=== PATIENT | female | born 1990 | race Caucasian/White ===

== ENCOUNTER 2017-10-20 07:53 | Inpatient (IN) | payer OTHER ==
[2017-10-20] MEDS ORDERED: Ondansetron INJ* 2 MG/ML VIAL IV ONE (08:32)
[2017-10-20] MEDS ORDERED: LORazepam INJ* 2 MG/ML 1 ML VIAL IV ONE ×3 (08:32→15:29)
[2017-10-20] MEDS ORDERED: cefTRIAXone(*) 1 GM in NS 0.9% 50 ML* 50 ML IVPB ONE (08:35)
[2017-10-20] MEDS: NS 0.9% 1000 ML* 2,000 ML IV ONE (09:05)
[2017-10-20] MEDS ORDERED: HYDROmorphone INJ* 1 MG/ML CARPUJECT SYRINGE IV ONE ×2 (09:20→12:04)
[2017-10-20] MEDS ORDERED: HYDROmorphone INJ* 1 MG/ML CARPUJECT SYRINGE ONE (09:22)
[2017-10-20 09:27] LABS: ABS Basophils 0.1 10^3/ul (0-0.2); ABS Eosinophils 0.1 10^3/ul (0-0.6); ABS Lymphocytes 3.9 10^3/ul (1.0-4.8); ABS Monocytes 1.4 10^3/ul (0-0.8); ABS Neutrophils 21.9 10^3/ul (1.5-7.7); ABS Nucleated RBC 0 10^3/ul; Eosinophil % 0.4 % (0-6); Hematocrit 42 % (35-47); Hemoglobin 13.9 g/dl (12.0-16.0); Lymphocyte % 14.2 % (25-47); Mean Corpuscular HGB Conc 33 g/dl (31-36); Mean Corpuscular Hemoglobin 29 pg (27-31); Mean Corpuscular Volume 88 fL (80-97); Mean Platelet Volume 7 um3 (7.4-10.4); Nucleated Red Blood Cells % 0; Platelet Count 435 10^3/ul (150-450); Red Blood Count 4.76 10^6/ul (4.0-5.4); Red Cell Distribution Width 13 % (10.5-15); White Blood Count 27.4 10^3/ul (3.5-10.8)
[2017-10-20 09:39] LABS: INR 1.11 (0.77-1.02)
[2017-10-20 09:53] LABS: EGFR Non-African American 105.6 (>60)
[2017-10-20] MEDS ORDERED: Iohexol 350* (CONTRAST) 500 ML MDV IV ONE ×2 (10:01→11:07)
--- NOTE | 2017-10-20 11:37 | RAD ---
Indication: Right arm swelling. CTA of the chest including the right arm was performed. The aorta demonstrates no evidence of aortic dissection. The right subclavian artery is patent. The right brachial artery appears patent. There is soft tissue edema in the right upper arm in the subcutaneous fat consistent with cellulitis. There is no mediastinal or hilar adenopathy noted. The heart demonstrates no pericardial effusion. The trachea and major bronchi appear patent. Lymph nodes are noted in the right axilla measuring up to 15 mm. IMPRESSION: No evidence of aortic dissection is noted. Right upper arm arterial system is patent.
--- NOTE | 2017-10-20 11:39 | RAD ---
Indication: Right upper arm swelling. Contrast: 100 mL of Omnipaque 350 was given. CTA of the right upper extremity was performed. Coronal, sagittal and 3-D reconstructive images were obtained. The right subclavian artery, axillary artery, brachial artery, radial artery and ulnar artery appear patent Evaluation of the soft tissues demonstrates diffuse subcutaneous edema consistent with cellulitis. The bony structures are unremarkable. IMPRESSION: CT arteriogram of the upper arm is unremarkable. Diffuse subcutaneous edema consistent with cellulitis is noted.
--- NOTE | 2017-10-20 13:06 | RAD ---
INDICATION: Right upper extremity swelling and pain. COMPARISON: There are no prior studies available for comparison. TECHNIQUE: Multiple real-time, color flow and Doppler tracings of the right upper extremity were obtained. FINDINGS: The axillary, brachial, basilic and cephalic veins all demonstrate normal compressibility, augmentation with compression and phasic response with respiration. The radial and ulnar veins demonstrate normal compressibility. The subclavian and internal jugular veins also demonstrate normal color flow imaging and phasic response with respiration. There is edema present throughout the upper extremity. IMPRESSION: NO EVIDENCE FOR DEEP VENOUS THROMBOSIS.
--- NOTE | 2017-10-20 13:15 | ED ---
Guzman Agrawal Abhishek, scribed for Abdiaziz Ballesteros MD on 10/20/17 at 0843 . Complex/Multi-Sys Presentation - HPI Summary HPI Summary: This patient is a 49 year old F [facility]_ with a chief complaint of RUE redness and edema since 10/18/17 at 1500. The pain has been worse since onset. 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 The pt states the injection site was in the middle of the arm. The pt also states that the pain was going up into my chest. Pain was rated a 7/10 in severity by the patient. Symptoms aggravated by nothing. Symptoms alleviated by nothing. Patient denies fevers, abd pain, nausea and chills and leg edema. The Pt also reports no known allergies. - History Of Current Complaint Chief Complaint: EDRashSkinAbscess Hx Obtained From: Patient Onset/Duration: Lasting Days - since 1500 on 10/18/17, Worse Since - onset of pain Timing: Constant Aggravating Factor(s): nothing Alleviating Factor(s): nothing Associated Signs And Symptoms: Positive: Chest Pain, Other - Negative chills. Negative: Nausea, Abdominal Pain, Fever - Allergies/Home Medications Allergies/Adverse Reactions: Allergies Allergy/AdvReac Type Severity Reaction Status Date / Time No Known Allergies Allergy Verified 06/10/14 15:46 PMH/Surg Hx/FS Hx/Imm Hx Neurological History: Reports: Hx Seizures, Other Neuro Impairments/Disorders - Cerebral palsy (mild) Psychiatric History: Reports: Hx Anxiety, Hx Suicide Attempt, Other Psychiatric Issues/Disorders - SI Denies: Hx Eating Disorder, Hx of Violent Episodes Against Others - Immunization History Date of Tetanus Vaccine: PT STATES UNSURE Date of Influenza Vaccine: NONE Infectious Disease History: No Infectious Disease History: Denies: Traveled Outside the [place] in Last 30 Days - Family History Known Family History: Positive: Other - Psychiatric illness; Other FHx reviewed and noncontributory - Social History Lives: With Family Alcohol Use: None 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) Substance Use Type: Reports: Marijuana Substance Use Comment - Amount & Last Used: Sober 1 month (06/10/14) Smoking Status (MU): Light Every Day Tobacco Smoker Review of Systems Negative: Fever, Chills Eyes: Negative ENT: Negative Positive: Chest Pain Respiratory: Negative Negative: Abdominal Pain, Nausea Genitourinary: Negative Positive: Myalgia - RUE pain, Edema - RUE, Other - Negative leg edema Positive: Other - RUE redness Neurological: Negative Psychological: Normal All Other Systems Reviewed And Are Negative: Yes Physical Exam - Summary Physical Exam Summary: General: well-appearing, Moderate pain distress Skin: Erythema in right arm, in the over the bicep from the elbow upto the shoulder Hard to touch, subcutaneous mass Firm Head: normal Eyes: EOMI, SAMANTHA ENT: normal, oral mucosa dry Neck: supple, nontender Respiratory: CTA, breath sounds present Cardiovascular:Tachycardia Abdomen: soft, nontender Bowel: present Musculoskeletal: normal, strength/ROM intact, Pulses in the right hand, and she is able to move her right hand Neurological: normal, sensory/motor intact, A&O x3 Psychological: affect/mood appropriate Triage Information Reviewed: Yes Vital Signs On Initial Exam: Initial Vitals Temp Pulse Resp BP Pulse Ox 98.7 F 110 22 123/82 99 10/20/17 07:55 10/20/17 07:55 10/20/17 07:55 10/20/17 07:55 10/20/17 07:55 Vital Signs Reviewed: Yes Diagnostics - Vital Signs Vital Signs Temp Pulse Resp BP Pulse Ox 10/20/17 07:55 98.7 F 110 22 123/82 99 - Laboratory Lab Results: Lab Results 10/20/17 10/20/17 10/20/17 Range/Units 09:11 09:11 09:11 WBC (3.5-10.8) 10^3/ul RBC (4.0-5.4) 10^6/ul Hgb (12.0-16.0) g/dl Hct (35-47) % MCV (80-97) fL MCH (27-31) pg MCHC (31-36) g/dl RDW (10.5-15) % Plt Count (150-450) 10^3/ul MPV (7.4-10.4) um3 Neut % (Auto) (38-83) % Lymph % (Auto) (25-47) % Valencia % (Auto) (1-9) % Eos % (Auto) (0-6) % Baso % (Auto) (0-2) % Absolute Neuts (auto) (1.5-7.7) 10^3/ul Absolute Lymphs (auto) (1.0-4.8) 10^3/ul Absolute Monos (auto) (0-0.8) 10^3/ul Absolute Eos (auto) (0-0.6) 10^3/ul Absolute Basos (auto) (0-0.2) 10^3/ul Absolute Nucleated RBC 10^3/ul Nucleated RBC % INR (Anticoag Therapy) 1.11 H (0.77-1.02) APTT 28.8 (26.0-36.3) seconds Sodium 132 L (133-145) mmol/L Potassium 4.0 (3.5-5.0) mmol/L Chloride 103 (101-111) mmol/L Carbon Dioxide 21 L (22-32) mmol/L Anion Gap 8 (2-11) mmol/L BUN 6 (6-24) mg/dL Creatinine 0.67 (0.51-0.95) mg/dL Est GFR ( Amer) 135.8 (>60) Est GFR (Non-Af Amer) 105.6 (>60) BUN/Creatinine Ratio 9.0 (8-20) Glucose 93 (70-100) mg/dL Lactic Acid (0.5-2.0) mmol/L Calcium 9.1 (8.6-10.3) mg/dL Total Bilirubin 0.40 (0.2-1.0) mg/dL AST 14 (13-39) U/L ALT 12 (7-52) U/L Alkaline Phosphatase 115 H (34-104) U/L Total Creatine Kinase 74 (10-223) U/L CK-MB (CK-2) 5.2 (0.6-6.3) ng/mL Troponin I 0.06 H* (<0.04) ng/mL C-Reactive Protein 258.44 H (< 5.00) mg/L B-Natriuretic Peptide 122 H ( - 100) pg/mL Total Protein 7.2 (6.4-8.9) g/dL Albumin 3.9 (3.2-5.2) g/dL Globulin 3.3 (2-4) g/dL Albumin/Globulin Ratio 1.2 (1-3) Lipase 16 (11.0-82.0) U/L TSH 0.40 (0.34-5.60) mcIU/mL Beta HCG, Quant 1.66 mIU/mL Salicylates < 2.50 (<30) mg/dL Acetaminophen < 15 mcg/mL Serum Alcohol < 10 (<10) mg/dL 10/20/17 10/20/17 Range/Units 09:11 09:11 WBC 27.4 H (3.5-10.8) 10^3/ul RBC 4.76 (4.0-5.4) 10^6/ul Hgb 13.9 (12.0-16.0) g/dl Hct 42 (35-47) % MCV 88 (80-97) fL MCH 29 (27-31) pg MCHC 33 (31-36) g/dl RDW 13 (10.5-15) % Plt Count 435 (150-450) 10^3/ul MPV 7 L (7.4-10.4) um3 Neut % (Auto) 79.8 (38-83) % Lymph % (Auto) 14.2 L (25-47) % Valencia % (Auto) 5.2 (1-9) % Eos % (Auto) 0.4 (0-6) % Baso % (Auto) 0.4 (0-2) % Absolute Neuts (auto) 21.9 H (1.5-7.7) 10^3/ul Absolute Lymphs (auto) 3.9 (1.0-4.8) 10^3/ul Absolute Monos (auto) 1.4 H (0-0.8) 10^3/ul Absolute Eos (auto) 0.1 (0-0.6) 10^3/ul Absolute Basos (auto) 0.1 (0-0.2) 10^3/ul Absolute Nucleated RBC 0 10^3/ul Nucleated RBC % 0 INR (Anticoag Therapy) (0.77-1.02) APTT (26.0-36.3) seconds Sodium (133-145) mmol/L Potassium (3.5-5.0) mmol/L Chloride (101-111) mmol/L Carbon Dioxide (22-32) mmol/L Anion Gap (2-11) mmol/L BUN (6-24) mg/dL Creatinine (0.51-0.95) mg/dL Est GFR ( Amer) (>60) Est GFR (Non-Af Amer) (>60) BUN/Creatinine Ratio (8-20) Glucose (70-100) mg/dL Lactic Acid 1.1 (0.5-2.0) mmol/L Calcium (8.6-10.3) mg/dL Total Bilirubin (0.2-1.0) mg/dL AST (13-39) U/L ALT (7-52) U/L Alkaline Phosphatase (34-104) U/L Total Creatine Kinase (10-223) U/L CK-MB (CK-2) (0.6-6.3) ng/mL Troponin I (<0.04) ng/mL C-Reactive Protein (< 5.00) mg/L B-Natriuretic Peptide ( - 100) pg/mL Total Protein (6.4-8.9) g/dL Albumin (3.2-5.2) g/dL Globulin (2-4) g/dL Albumin/Globulin Ratio (1-3) Lipase (11.0-82.0) U/L TSH (0.34-5.60) mcIU/mL Beta HCG, Quant mIU/mL Salicylates (<30) mg/dL Acetaminophen mcg/mL Serum Alcohol (<10) mg/dL Result Diagrams: 10/20/17 09:11 10/20/17 09:11 Lab Statement: Any lab studies that have been ordered have been reviewed, and results considered in the medical decision making process. - CT Chest CTA CT Interpretation Completed By: Radiologist - Chest CTA No evidence of aortic dissection is noted. Right upper arm arterial system is patent. ED physician has reviewed this radiology report. Upper extremity CTA CT Interpretation Completed By: Radiologist - Upper Extremity CTA CT arteriogram of the upper arm is unremarkable. Diffuse subcutaneous edema consistent with cellulitis is noted. ED physician has reviewed this radiology report and agrees. - EKG 0958 EKG Rhythm: Sinus Rhythm - 87 bpm EKG Interpretation: An EKG at [address] elevation in V2 and no ectopy Complex Multi-Symp Course/Dx Course Of Treatment: DR GOLDSTEIN, ICU, SAW PATIENT IN ED. ADMIT HOSPITALIST. CRITICAL CARE TIME LESS THAN 30 MINUTES. - Diagnoses Provider Diagnoses: Cellulitis of arm, right, Elevated troponin Discharge - Discharge Plan Condition: Fair Disposition: ADMITTED TO [facility] Referrals: Prosper RICO,Deonte Lyn [Primary Care Provider] - The documentation as recorded by the Guzman bergeron Abhishek accurately reflects the service I personally performed and the decisions made by me, Abdiaziz Ballesteros MD.
[2017-10-20] MEDS ORDERED: Ondansetron INJ* 2 MG/ML VIAL IV PRN (13:18)
[2017-10-20] MEDS ORDERED: Vancomycin(*) 1,000 MG in NS 0.9% 250 ML* 250 ML IVPB ONE (14:00)
[2017-10-20] MEDS ORDERED: Vancomycin(*) 1,000 MG in D5W 250 ML BAG* 250 ML IVPB ONE (14:00)
[2017-10-20] MEDS ORDERED: Vancomycin per Pharmacy* NOTE FOLLOW UP PRN (14:22)
[2017-10-20] MEDS ORDERED: LORazepam INJ* 2 MG/ML 1 ML VIAL ONE (15:31)
[2017-10-20] MEDS: traMADol TAB* 50 MG PO PRN (16:13)
--- NOTE | 2017-10-20 17:31 | HP ---
CC: Dr. Cheng * [facility] MEDICINE HISTORY AND PHYSICAL: DATE OF ADMISSION: 10/20/17 PRIMARY CARE PROVIDER: Dr. Cheng. ATTENDING PHYSICIAN: Kriss Gr DO * (dictation provided by Magalie Kelley NP ) CHIEF COMPLAINT: Right upper extremity redness and swelling. HISTORY OF PRESENT ILLNESS: Ms. Boyd is a 27-year-old female who has a history of IV drug use who presented to the hospital today with concern for right upper extremity redness and swelling. It was found on my examination that Ms. Boyd is very sedated and she is not able to offer much in the way of history other than to confirm that she is an injection drug user and per her report now, she injected methamphetamines into her right upper extremity. She confirms that she first noted symptoms about 4 days ago. Per the emergency medical room provider who interviewed her when she first arrived to the ED, she stated that she had had this redness and swelling since 10/18/17 at 3 o'clock. 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 She reported at that time that she had pain going up into her chest. I am not able to get further information from her today. In the emergency room, she had a white blood cell count of 27.4. Her CRP is 258.44. She is afebrile. Her vitals are stable. She is not tachycardic. She is not hypotensive. Her BUN and creatinine are within normal limits. She had a chest thorax CTA and an upper extremity CTA, which showed good perfusion, but likely significant subcutaneous edema. She also had a venous Doppler study, which showed no DVT. Neither study showed any subcutaneous air. PAST MEDICAL HISTORY: Unknown. MEDICATIONS: Unknown. ALLERGIES: Unknown. FAMILY HISTORY: Unobtainable. SOCIAL HISTORY: Report of IV drug use. No other history obtainable. REVIEW OF SYSTEMS: Unobtainable. PHYSICAL EXAMINATION GENERAL: Ms. Boyd is lying in the bed. She does not appear to be in any acute distress. VITAL SIGNS: Temperature 98.7, pulse rate 97, respiratory rate 23, O2 saturation 99% on room air, blood pressure 102/74. LUNGS: Clear to auscultation bilaterally with no accessory muscle use and good aeration. HEART: S1, S2. No murmur, rub, or gallop, and regular. ABDOMEN: Soft, nontender with bowel sounds positive x4. EXTREMITIES: No cyanosis. The patient has erythema and edema in her right upper extremity from about the level of the shoulder to almost the level of the elbow on the medial aspect. There are no open areas or drainage. There is induration on the extremity side of the axilla. NEURO: She awakens to voice briefly and will say a few words, then falls back to sleep. She moves all extremities equally. There is no facial asymmetry or focal weakness. Extraocular movements are intact. Her pupils are pinpoint. LABORATORY DATA/DIAGNOSTIC STUDIES: Sodium 132, potassium 4.0, chloride 103, serum bicarbonate 21, BUN 6, creatinine 0.67, glucose 93. Lactic acid 1.1. Troponin 0.06. CRP 258.44. BNP 122. WBC 27.4, hemoglobin 13.9, hematocrit 42 , platelet count 435,000. INR 1.11. Tox screen is negative for alcohol, Tylenol, or salicylates. The chest thorax CTA is read as follows; "no evidence of aortic dissection is noted. Right upper arterial system is patent." Upper extremity CTA is read as follows; "CT arteriogram of the upper arm is unremarkable. Diffuse subcutaneous edema consistent with cellulitis is noted." Venous Doppler study shows "no evidence for deep vein thrombosis." EKG showed sinus rhythm, but no evidence of ischemia and a heart rate of about 90. ASSESSMENT AND PLAN: Ms. Boyd is a 27-year-old female with no known past medical history who presented to the hospital today with report of injecting photoengraving sketch maker fluid and/or methamphetamine into her right upper extremity with ensuing erythema and edema starting about 2 to 4 days ago. In the emergency room, she has been found to have sepsis with cellulitis. Our plans are for inpatient admission as I expect her length of stay would be greater than 2 days for the followin. Sepsis with cellulitis: The patient has received an appropriate over 30 mL/ kg IV fluid bolus in the emergency room. Her lactic acid is normal. She is hemodynamically stable. Plan to continue with maintenance fluids and adjust those as needed based on clinical course. Blood cultures have been sent as well as hepatitis C and HIV. The patient will be covered with vancomycin and cefepime until blood cultures are resulted as she is at high risk for polymicrobial infection and bacteremia. I have also consulted Dr. Soria and he will see her at his earliest convenience. 2. Intravenous drug use. Social Work has been consulted. 3. Code status is full code. 4. Disposition to the telemetry floor. 5. Elevated troponin. The patient's troponin is 0.06 today. I suspect this is due to infection. However, she did report some chest discomfort on arrival. Plan to trend troponins and monitor on the telemetry unit and further testing will be based on clinical course. TIME SPENT: Approximately 60 minutes were spent on the admission of this patient, and more than half of the time was spent with the patient at the bedside reviewing the events leading up to this hospitalization, performing the physical examination and reviewing my plan of care. MAGALIE KELLEY, ELLI [id number]/[facility] #: [id number] RADHA
[2017-10-20] MEDS: oxyCODONE/Acetamin 5/325 MG* TAB PO PRN (18:35)
[2017-10-20] MEDS: LORazepam INJ* 2 MG/ML 1 ML VIAL IV PUSH PRN (18:36)
[2017-10-20] MEDS ORDERED: Nicotine GUM* 2 MG PO PRN (18:59)
[2017-10-20] MEDS ORDERED: Cefepime(*) 1 GM in NS 0.9% 50 ML* 50 ML IVPB SCH (21:00)
[2017-10-20] MEDS ORDERED: LORazepam INJ* 2 MG/ML 1 ML VIAL IV PUSH ONE (21:08)
[2017-10-20] MEDS: diPHENhydraMINE PO* 50 MG PO PRN (21:52)
[2017-10-20] MEDS: Acetaminophen TAB* 325 MG PO PRN (21:53)
[2017-10-20] MEDS: Vancomycin(*) 500 MG in D5W 250 ML BAG* 250 ML IVPB SCH (22:06)
[2017-10-20] MEDS: Cefepime 1 GM in Dextrose(*) 1 GM/50 ML BAG IV SCH (22:16)
[2017-10-21] MEDS: diPHENhydraMINE PO* 50 MG PO PRN (03:47)
[2017-10-21] MEDS: Vancomycin(*) 500 MG in D5W 250 ML BAG* 250 ML IVPB SCH ×2 (03:47→09:15)
[2017-10-21] MEDS: oxyCODONE/Acetamin 5/325 MG* TAB PO PRN ×3 (03:48→23:09)
[2017-10-21] MEDS: LORazepam INJ* 2 MG/ML 1 ML VIAL IV PUSH PRN ×2 (03:49→09:17)
[2017-10-21] MEDS: traMADol TAB* 50 MG PO PRN ×2 (03:49→14:51)
[2017-10-21 05:16] LABS: Urine Appearance Clear; Urine Blood Negative (Negative); Urine Color Straw; Urine Ketones Negative (Negative); Urine Protein Negative (Negative); Urine Specific Gravity 1.009 (1.010-1.030); Urine Urobilinogen Negative (Negative)
[2017-10-21 06:18] LABS: ABS Basophils 0 10^3/ul (0-0.2); ABS Eosinophils 0.3 10^3/ul (0-0.6); ABS Lymphocytes 3.5 10^3/ul (1.0-4.8); ABS Monocytes 1.1 10^3/ul (0-0.8); ABS Neutrophils 12.1 10^3/ul (1.5-7.7); ABS Nucleated RBC 0 10^3/ul; Eosinophil % 1.6 % (0-6); Hematocrit 34 % (35-47); Hemoglobin 11.3 g/dl (12.0-16.0); Lymphocyte % 20.7 % (25-47); Mean Corpuscular HGB Conc 34 g/dl (31-36); Mean Corpuscular Hemoglobin 29 pg (27-31); Mean Corpuscular Volume 87 fL (80-97); Mean Platelet Volume 7 um3 (7.4-10.4); Nucleated Red Blood Cells % 0; Platelet Count 347 10^3/ul (150-450); Red Blood Count 3.87 10^6/ul (4.0-5.4); Red Cell Distribution Width 13 % (10.5-15); White Blood Count 17.1 10^3/ul (3.5-10.8)
[2017-10-21 06:35] LABS: EGFR Non-African American 135.4 (>60); Vancomycin Trough 16.1 mcg/mL
[2017-10-21] MEDS: Cefepime 1 GM in Dextrose(*) 1 GM/50 ML BAG IV SCH ×2 (09:15→21:59)
[2017-10-21] MEDS: Nicotine PATCH 14 MG/24 HR* PATCH TRANSDERM SCH (09:15)
[2017-10-21] MEDS ORDERED: Vancomycin Trough Check NOTE FOLLOW UP ONE (10:00)
[2017-10-21] MEDS: Vancomycin(*) 1,000 MG in D5W 250 ML BAG* 250 ML IVPB SCH ×2 (15:53→22:54)
--- NOTE | 2017-10-21 15:56 | PN ---
Subjective Date of Service: 10/21/17 Interval History: Patient seen and examined. Sleepy, tearful. In extreme pain with movement of RUE. 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 Crying when describing the episode and that her mother 2 years ago and she was injecting drugs to stop thinking about the loss of her mother. States pain to right chest, upper back and shoulder, right axilla and down to forearm. Denies SOB, no headache fever or chills. No n/v. Family friend at bedside. Objective Active Medications: Acetaminophen (Tylenol Tab*) 650 mg PO Q6H PRN PRN Reason: pain/fever Last Admin: 10/20/17 21:53 Dose: 650 mg Device (Nicotine Mouth Piece*) 1 each INH .USE WITH NICOTROL PRN PRN Reason: CRAVING Diphenhydramine HCl (Benadryl Po*) 50 mg PO Q6H PRN PRN Reason: ANXIETY Last Admin: 10/21/17 03:47 Dose: 50 mg Lactated Ringer's (Lactated Ringers 1000 Ml Bag*) 1,000 mls @ 150 mls/hr IV PER RATE [facility] Last Admin: 10/21/17 09:29 Dose: 150 mls/hr Cefepime HCl (Maxipime 1 Gm In Dextrose Duplex (*)) 1 gm in 50 mls @ 100 mls/ hr IV Q12H [facility]AYEN Last Admin: 10/21/17 09:15 Dose: 100 mls/hr Vancomycin HCl 1,000 mg/ (Dextrose) 250 mls @ 166.667 mls/hr IVPB Q8H [facility] Lorazepam (Ativan Inj*) 1 mg IV PUSH Q4H PRN PRN Reason: AGITATION Last Admin: 10/21/17 09:17 Dose: 1 mg Nicotine (Nicotine Inhaler*) 10 mg INH Q2H PRN PRN Reason: CRAVING Nicotine (Nicotine Patch 14 Mg/24 Hr*) 1 patch TRANSDERM DAILY [facility] Last Admin: 10/21/17 09:15 Dose: 1 patch Nicotine Polacrilex (Nicotine Gum*) 2 mg PO Q2H PRN PRN Reason: CRAVING Ondansetron HCl (Zofran Inj*) 4 mg IV Q6H PRN PRN Reason: NAUSEA Oxycodone/Acetaminophen (Percocet 5/325 Tab*) 1 tab PO Q4H PRN PRN Reason: PAIN Last Admin: 10/21/17 14:52 Dose: 1 tab Pharmacy Consult (Vancomycin Per Pharmacy*) 1 note FOLLOW UP . PRN PRN Reason: PER PROTOCOL Pharmacy Profile Note (Nicotine Patch Removal Note*) 1 note PATCH OFF 2100 DWAYNE Pharmacy Profile Note (Vancomycin Trough Check) 1 note FOLLOW UP 0630 ONE Stop: 10/23/17 06:31 Tramadol HCl (Ultram*) 100 mg PO Q6H PRN PRN Reason: PAIN Last Admin: 10/21/17 14:51 Dose: 100 mg Vital Signs - 8 hr 10/21/17 10/21/17 10/21/17 08:00 09:17 10:38 Temperature Pulse Rate Respiratory 16 16 14 Rate Blood Pressure (mmHg) O2 Sat by Pulse Oximetry 10/21/17 10/21/17 10/21/17 11:16 14:51 14:52 Temperature 98.4 F Pulse Rate 96 Respiratory 24 16 16 Rate Blood Pressure 119/83 (mmHg) O2 Sat by Pulse 99 Oximetry Oxygen Devices in Use Now: None Appearance: disheveled, tearful, sleepy Eyes: No Scleral Icterus, PERRLA Ears/Nose/Mouth/Throat: NL Teeth, Lips, Gums, - - dry oral mucosa Neck: NL Appearance and Movements; NL JVP, Trachea Midline Respiratory: Symmetrical Chest Expansion and Respiratory Effort, Clear to Auscultation Cardiovascular: NL Sounds; No Murmurs; No JVD, RRR, No Edema Abdominal: NL Sounds; No Tenderness; No Distention Lymphatic: No Cervical Adenopathy Extremities: No Clubbing, Cyanosis - +2 distal pulses on affected limb, sensation and motor intact Skin: - - erythema and edema RUE, right chest and partial neck, marked Neurological: Alert and Oriented x 3 Result Diagrams: 10/21/17 05:59 10/21/17 05:55 Additional Lab and Data: Lab Results 10/20/17 10/20/17 10/20/17 Range/Units 09:11 09:11 09:11 WBC (3.5-10.8) 10^3/ul RBC (4.0-5.4) 10^6/ul Hgb (12.0-16.0) g/dl Hct (35-47) % MCV (80-97) fL MCH (27-31) pg MCHC (31-36) g/dl RDW (10.5-15) % Plt Count (150-450) 10^3/ul MPV (7.4-10.4) um3 Neut % (Auto) (38-83) % Lymph % (Auto) (25-47) % Mccone % (Auto) (1-9) % Eos % (Auto) (0-6) % Baso % (Auto) (0-2) % Absolute Neuts (auto) (1.5-7.7) 10^3/ul Absolute Lymphs (auto) (1.0-4.8) 10^3/ul Absolute Monos (auto) (0-0.8) 10^3/ul Absolute Eos (auto) (0-0.6) 10^3/ul Absolute Basos (auto) (0-0.2) 10^3/ul Absolute Nucleated RBC 10^3/ul Nucleated RBC % INR (Anticoag Therapy) 1.11 H (0.77-1.02) APTT 28.8 (26.0-36.3) seconds Sodium 132 L (133-145) mmol/L Potassium 4.0 (3.5-5.0) mmol/L Chloride 103 (101-111) mmol/L Carbon Dioxide 21 L (22-32) mmol/L Anion Gap 8 (2-11) mmol/L BUN 6 (6-24) mg/dL Creatinine 0.67 (0.51-0.95) mg/dL Est GFR ( Amer) 135.8 (>60) Est GFR (Non-Af Amer) 105.6 (>60) BUN/Creatinine Ratio 9.0 (8-20) Glucose 93 (70-100) mg/dL Lactic Acid (0.5-2.0) mmol/L Calcium 9.1 (8.6-10.3) mg/dL Total Bilirubin 0.40 (0.2-1.0) mg/dL AST 14 (13-39) U/L ALT 12 (7-52) U/L Alkaline Phosphatase 115 H (34-104) U/L Total Creatine Kinase 74 (10-223) U/L CK-MB (CK-2) 5.2 (0.6-6.3) ng/mL Troponin I 0.06 H* (<0.04) ng/mL C-Reactive Protein 258.44 H (< 5.00) mg/L B-Natriuretic Peptide 122 H ( - 100) pg/mL Total Protein 7.2 (6.4-8.9) g/dL Albumin 3.9 (3.2-5.2) g/dL Globulin 3.3 (2-4) g/dL Albumin/Globulin Ratio 1.2 (1-3) Lipase 16 (11.0-82.0) U/L TSH 0.40 (0.34-5.60) mcIU/mL Beta HCG, Quant 1.66 mIU/mL Salicylates < 2.50 (<30) mg/dL Acetaminophen < 15 mcg/mL Serum Alcohol < 10 (<10) mg/dL 10/20/17 10/20/17 Range/Units 09:11 09:11 WBC 27.4 H (3.5-10.8) 10^3/ul RBC 4.76 (4.0-5.4) 10^6/ul Hgb 13.9 (12.0-16.0) g/dl Hct 42 (35-47) % MCV 88 (80-97) fL MCH 29 (27-31) pg MCHC 33 (31-36) g/dl RDW 13 (10.5-15) % Plt Count 435 (150-450) 10^3/ul MPV 7 L (7.4-10.4) um3 Neut % (Auto) 79.8 (38-83) % Lymph % (Auto) 14.2 L (25-47) % Mccone % (Auto) 5.2 (1-9) % Eos % (Auto) 0.4 (0-6) % Baso % (Auto) 0.4 (0-2) % Absolute Neuts (auto) 21.9 H (1.5-7.7) 10^3/ul Absolute Lymphs (auto) 3.9 (1.0-4.8) 10^3/ul Absolute Monos (auto) 1.4 H (0-0.8) 10^3/ul Absolute Eos (auto) 0.1 (0-0.6) 10^3/ul Absolute Basos (auto) 0.1 (0-0.2) 10^3/ul Absolute Nucleated RBC 0 10^3/ul Nucleated RBC % 0 INR (Anticoag Therapy) (0.77-1.02) APTT (26.0-36.3) seconds Sodium (133-145) mmol/L Potassium (3.5-5.0) mmol/L Chloride (101-111) mmol/L Carbon Dioxide (22-32) mmol/L Anion Gap (2-11) mmol/L BUN (6-24) mg/dL Creatinine (0.51-0.95) mg/dL Est GFR ( Amer) (>60) Est GFR (Non-Af Amer) (>60) BUN/Creatinine Ratio (8-20) Glucose (70-100) mg/dL Lactic Acid 1.1 (0.5-2.0) mmol/L Calcium (8.6-10.3) mg/dL Total Bilirubin (0.2-1.0) mg/dL AST (13-39) U/L ALT (7-52) U/L Alkaline Phosphatase (34-104) U/L Total Creatine Kinase (10-223) U/L CK-MB (CK-2) (0.6-6.3) ng/mL Troponin I (<0.04) ng/mL C-Reactive Protein (< 5.00) mg/L B-Natriuretic Peptide ( - 100) pg/mL Total Protein (6.4-8.9) g/dL Albumin (3.2-5.2) g/dL Globulin (2-4) g/dL Albumin/Globulin Ratio (1-3) Lipase (11.0-82.0) U/L TSH (0.34-5.60) mcIU/mL Beta HCG, Quant mIU/mL Salicylates (<30) mg/dL Acetaminophen mcg/mL Serum Alcohol (<10) mg/dL Diagnostic Imaging: Patient Name: ASHELY SO Medical Record#: [id number] Ordering Physician: Abdiaziz Ballesteros MD Acct.#: [id number] : 1990 Age: 27 Sex: F Location: EMERGENCY DEPARTMENT Exam Date: 10/20/17 1005 ADM Status: REG ER Order Information: CTA EXTREMITY UPPER RIGHT Accession Number: [id number] CPT: 96811 Indication: Right upper arm swelling. Contrast: 100 mL of Omnipaque 350 was given. CTA of the right upper extremity was performed. Coronal, sagittal and 3-D reconstructive images were obtained. The right subclavian artery, axillary artery, brachial artery, radial artery and ulnar artery appear patent Evaluation of the soft tissues demonstrates diffuse subcutaneous edema consistent with cellulitis. The bony structures are unremarkable. IMPRESSION: CT arteriogram of the upper arm is unremarkable. Diffuse subcutaneous edema consistent with cellulitis is noted. <Electronically signed by Marilee Latif MD in OV> 10/20/17 1136 Dictated By: Marilee Latif MD Dictated Date/Time: 10/20/17 1136 Transcribed Date/Time: 10/20/17 1134 Copy to: CC:Deonte Cheng MD; Abdiaziz Ballesteros MD Imaging - [facility] - [place] [facility] Imaging - [facility] [address] [address] ph [phone]) ph [phone]) ph [phone]) 1 of 1 Assess/Plan/Problems-Billing Assessment: - Patient Problems (1) Cellulitis of right upper extremity Code(s): L03.113 - CELLULITIS OF RIGHT UPPER LIMB SNOMED Code(s): 826499614 Comment: - IV vanco and cefepime - Pending consult with ID - CT and US negative for clot or artererial occlusion - Per poison control, observe for compartment syndrome or need for fasciotomy - Will consult vascular if needed - Monitor site closely (2) Drug abuse and dependence Code(s): F19.20 - OTHER PSYCHOACTIVE SUBSTANCE DEPENDENCE, UNCOMPLICATED SNOMED Code(s): 3333620 Comment: - Offered SW help, patient declines (3) Sepsis Comment: - 2/2 cellulitis, continue IVNS fluid resuscitation - Continue IV atbx - Follow blood cx - WBCs trending down - BP stable - Trend temps Status and Disposition: Remain inpatient with close hemodynamic monitoring Counseling and/or Coordination of Care Minutes: Coordinated with staff, time spent >45mins
[2017-10-21] MEDS: Nicotine Patch Removal NOTE PATCH OFF SCH (22:02)
[2017-10-22] MEDS: diPHENhydraMINE PO* 50 MG PO PRN ×3 (04:50→23:12)
[2017-10-22] MEDS: oxyCODONE/Acetamin 5/325 MG* TAB PO PRN ×3 (04:58→19:58)
--- NOTE | 2017-10-22 05:01 | PN ---
Hospitalist Progress Note Date of Service: 10/22/17 . Cross Cover: Called by RN to observe painful, swollen area that is apparently worsened. IVDU / injection near that site noted. On vanco Ultrasound ordered to investigate if there is a fluid collection to drain.
[2017-10-22] MEDS: Vancomycin(*) 1,000 MG in D5W 250 ML BAG* 250 ML IVPB SCH ×3 (07:38→23:00)
--- NOTE | 2017-10-22 10:00 | RAD ---
INDICATION: Right upper arm erythema and pain COMPARISON: None TECHNIQUE: Real time ultrasound images of the right upper arm were acquired with carey scale and Doppler color flow imaging. FINDINGS: Within the musculature of the right upper arm there is an avascular and heterogeneous collection with peripheral vascularity measuring 8.8 x 3.9 x 1.9 cm. IMPRESSION: Sonographic findings are consistent with either intramuscular perimuscular right upper arm abscess.
[2017-10-22] MEDS ORDERED: Morphine INJ* 2 MG/ML 1 ML SYRINGE (TWO MG - NEW SYRINGE VERSION) IV PRN (10:15)
--- NOTE | 2017-10-22 11:13 | PN ---
Subjective Date of Service: 10/22/17 Interval History: Patient seen and examined. Pain, erythema and swelling increasing in LUE and into axilla. Was sent for repeat US overnight that now shows collection/abcess in the muscle now. Pain also in right anterior chest wall, axilla and medial forearm. Some chills, afebrile per record. Objective Active Medications: Acetaminophen (Tylenol Tab*) 650 mg PO Q6H PRN PRN Reason: pain/fever Last Admin: 10/20/17 21:53 Dose: 650 mg Device (Nicotine Mouth Piece*) 1 each INH .USE WITH NICOTROL PRN PRN Reason: CRAVING Diphenhydramine HCl (Benadryl Po*) 50 mg PO Q6H PRN PRN Reason: ANXIETY Last Admin: 10/22/17 04:50 Dose: 50 mg Lactated Ringer's (Lactated Ringers 1000 Ml Bag*) 1,000 mls @ 150 mls/hr IV PER RATE [facility] Last Admin: 10/22/17 07:38 Dose: 150 mls/hr Cefepime HCl (Maxipime 1 Gm In Dextrose Duplex (*)) 1 gm in 50 mls @ 100 mls/ hr IV Q12H [facility] Last Admin: 10/21/17 21:59 Dose: 100 mls/hr Vancomycin HCl 1,000 mg/ (Dextrose) 250 mls @ 166.667 mls/hr IVPB Q8H [facility] Last Admin: 10/22/17 07:38 Dose: 166.667 mls/hr Lorazepam (Ativan Inj*) 1 mg IV PUSH Q4H PRN PRN Reason: AGITATION Last Admin: 10/21/17 09:17 Dose: 1 mg Morphine Sulfate (Morphine Inj (Syringe)*) 2 mg IV Q4H PRN PRN Reason: PAIN - SEVERE Nicotine (Nicotine Inhaler*) 10 mg INH Q2H PRN PRN Reason: CRAVING Nicotine (Nicotine Patch 14 Mg/24 Hr*) 1 patch TRANSDERM DAILY [facility] Last Admin: 10/21/17 09:15 Dose: 1 patch Nicotine Polacrilex (Nicotine Gum*) 2 mg PO Q2H PRN PRN Reason: CRAVING Ondansetron HCl (Zofran Inj*) 4 mg IV Q6H PRN PRN Reason: NAUSEA Oxycodone/Acetaminophen (Percocet 5/325 Tab*) 1 tab PO Q4H PRN PRN Reason: PAIN Last Admin: 10/22/17 04:58 Dose: 1 tab Pharmacy Consult (Vancomycin Per Pharmacy*) 1 note FOLLOW UP . PRN PRN Reason: PER PROTOCOL Pharmacy Profile Note (Nicotine Patch Removal Note*) 1 note PATCH OFF 2100 DWAYNE Last Admin: 10/21/17 22:02 Dose: 1 note Pharmacy Profile Note (Vancomycin Trough Check) 1 note FOLLOW UP 0630 ONE Stop: 10/23/17 06:31 Tramadol HCl (Ultram*) 100 mg PO Q6H PRN PRN Reason: PAIN Last Admin: 10/21/17 14:51 Dose: 100 mg Vital Signs - 8 hr 10/22/17 10/22/17 10/22/17 04:03 04:50 04:58 Temperature 98.7 F Pulse Rate 88 Respiratory 16 20 20 Rate Blood Pressure 114/73 (mmHg) O2 Sat by Pulse 98 Oximetry 10/22/17 10/22/17 10/22/17 06:55 07:27 07:49 Temperature 98.1 F Pulse Rate 86 Respiratory 18 18 18 Rate Blood Pressure 125/86 (mmHg) O2 Sat by Pulse 100 Oximetry Oxygen Devices in Use Now: None Appearance: Distressed Eyes: No Scleral Icterus, PERRLA Ears/Nose/Mouth/Throat: NL Teeth, Lips, Gums, - - dry oral mucosa Neck: NL Appearance and Movements; NL JVP, Trachea Midline Respiratory: Clear to Auscultation, - - mild tachypnea Cardiovascular: NL Sounds; No Murmurs; No JVD - tachycardia Abdominal: NL Sounds; No Tenderness; No Distention, No Hepatosplenomegaly Lymphatic: - - axillary and inguinal adenopathy noted Extremities: No Edema, No Clubbing, Cyanosis Skin: No Rash or Ulcers Neurological: Alert and Oriented x 3, NL Sensation, NL Muscle Strength and Tone Result Diagrams: 10/22/17 11:00 10/22/17 11:00 Additional Lab and Data: Lab Results 10/20/17 10/20/17 10/20/17 Range/Units 09:11 09:11 09:11 WBC (3.5-10.8) 10^3/ul RBC (4.0-5.4) 10^6/ul Hgb (12.0-16.0) g/dl Hct (35-47) % MCV (80-97) fL MCH (27-31) pg MCHC (31-36) g/dl RDW (10.5-15) % Plt Count (150-450) 10^3/ul MPV (7.4-10.4) um3 Neut % (Auto) (38-83) % Lymph % (Auto) (25-47) % Cameron % (Auto) (1-9) % Eos % (Auto) (0-6) % Baso % (Auto) (0-2) % Absolute Neuts (auto) (1.5-7.7) 10^3/ul Absolute Lymphs (auto) (1.0-4.8) 10^3/ul Absolute Monos (auto) (0-0.8) 10^3/ul Absolute Eos (auto) (0-0.6) 10^3/ul Absolute Basos (auto) (0-0.2) 10^3/ul Absolute Nucleated RBC 10^3/ul Nucleated RBC % INR (Anticoag Therapy) 1.11 H (0.77-1.02) APTT 28.8 (26.0-36.3) seconds Sodium 132 L (133-145) mmol/L Potassium 4.0 (3.5-5.0) mmol/L Chloride 103 (101-111) mmol/L Carbon Dioxide 21 L (22-32) mmol/L Anion Gap 8 (2-11) mmol/L BUN 6 (6-24) mg/dL Creatinine 0.67 (0.51-0.95) mg/dL Est GFR ( Amer) 135.8 (>60) Est GFR (Non-Af Amer) 105.6 (>60) BUN/Creatinine Ratio 9.0 (8-20) Glucose 93 (70-100) mg/dL Lactic Acid (0.5-2.0) mmol/L Calcium 9.1 (8.6-10.3) mg/dL Total Bilirubin 0.40 (0.2-1.0) mg/dL AST 14 (13-39) U/L ALT 12 (7-52) U/L Alkaline Phosphatase 115 H (34-104) U/L Total Creatine Kinase 74 (10-223) U/L CK-MB (CK-2) 5.2 (0.6-6.3) ng/mL Troponin I 0.06 H* (<0.04) ng/mL C-Reactive Protein 258.44 H (< 5.00) mg/L B-Natriuretic Peptide 122 H ( - 100) pg/mL Total Protein 7.2 (6.4-8.9) g/dL Albumin 3.9 (3.2-5.2) g/dL Globulin 3.3 (2-4) g/dL Albumin/Globulin Ratio 1.2 (1-3) Lipase 16 (11.0-82.0) U/L TSH 0.40 (0.34-5.60) mcIU/mL Beta HCG, Quant 1.66 mIU/mL Salicylates < 2.50 (<30) mg/dL Acetaminophen < 15 mcg/mL Serum Alcohol < 10 (<10) mg/dL 10/20/17 10/20/17 Range/Units 09:11 09:11 WBC 27.4 H (3.5-10.8) 10^3/ul RBC 4.76 (4.0-5.4) 10^6/ul Hgb 13.9 (12.0-16.0) g/dl Hct 42 (35-47) % MCV 88 (80-97) fL MCH 29 (27-31) pg MCHC 33 (31-36) g/dl RDW 13 (10.5-15) % Plt Count 435 (150-450) 10^3/ul MPV 7 L (7.4-10.4) um3 Neut % (Auto) 79.8 (38-83) % Lymph % (Auto) 14.2 L (25-47) % Cameron % (Auto) 5.2 (1-9) % Eos % (Auto) 0.4 (0-6) % Baso % (Auto) 0.4 (0-2) % Absolute Neuts (auto) 21.9 H (1.5-7.7) 10^3/ul Absolute Lymphs (auto) 3.9 (1.0-4.8) 10^3/ul Absolute Monos (auto) 1.4 H (0-0.8) 10^3/ul Absolute Eos (auto) 0.1 (0-0.6) 10^3/ul Absolute Basos (auto) 0.1 (0-0.2) 10^3/ul Absolute Nucleated RBC 0 10^3/ul Nucleated RBC % 0 INR (Anticoag Therapy) (0.77-1.02) APTT (26.0-36.3) seconds Sodium (133-145) mmol/L Potassium (3.5-5.0) mmol/L Chloride (101-111) mmol/L Carbon Dioxide (22-32) mmol/L Anion Gap (2-11) mmol/L BUN (6-24) mg/dL Creatinine (0.51-0.95) mg/dL Est GFR ( Amer) (>60) Est GFR (Non-Af Amer) (>60) BUN/Creatinine Ratio (8-20) Glucose (70-100) mg/dL Lactic Acid 1.1 (0.5-2.0) mmol/L Calcium (8.6-10.3) mg/dL Total Bilirubin (0.2-1.0) mg/dL AST (13-39) U/L ALT (7-52) U/L Alkaline Phosphatase (34-104) U/L Total Creatine Kinase (10-223) U/L CK-MB (CK-2) (0.6-6.3) ng/mL Troponin I (<0.04) ng/mL C-Reactive Protein (< 5.00) mg/L B-Natriuretic Peptide ( - 100) pg/mL Total Protein (6.4-8.9) g/dL Albumin (3.2-5.2) g/dL Globulin (2-4) g/dL Albumin/Globulin Ratio (1-3) Lipase (11.0-82.0) U/L TSH (0.34-5.60) mcIU/mL Beta HCG, Quant mIU/mL Salicylates (<30) mg/dL Acetaminophen mcg/mL Serum Alcohol (<10) mg/dL Diagnostic Imaging: REPEAT US LUE: Patient Name: ASHELY SO Medical Record#: [id number] Ordering Physician: Jostin Schmidt MD Acct.#: [id number] : 1990 Age: 27 Sex: F Location: [address] [place] [address]/TELEMETRY Exam Date: 10/22/17 0454 ADM Status: ADM IN Order Information: US SOFT TISSUE EXT RT COMP Accession Number: [id number] CPT: 39455 INDICATION: Right upper arm erythema and pain COMPARISON: None TECHNIQUE: Real time ultrasound images of the right upper arm were acquired with carey scale and Doppler color flow imaging. FINDINGS: Within the musculature of the right upper arm there is an avascular and heterogeneous collection with peripheral vascularity measuring 8.8 x 3.9 x 1.9 cm. IMPRESSION: Sonographic findings are consistent with either intramuscular perimuscular right upper arm abscess. <Electronically signed by Jacek Molina MD in OV> 10/22/17956 Dictated By: Jacek Molina MD Dictated Date/Time: 10/22/17956 Transcribed Date/Time: 10/22/17954 Copy to: CC:Kriss Gr DO; Justin Soria MD; Saul Darden MD; Jostin Schmidt MD ; Deonte Cheng MD Imaging - [facility] Imaging - [place] [facility] [address] [place] [address] ph [phone]) ph ([phone]) ph ([phone]) 1 of 1 Assess/Plan/Problems-Billing Assessment: This is a 27 year old female patient with hx of injection drug abuse that presents with cellulitis and abcess of LUE, r/o sepsis. - Patient Problems (1) Cellulitis of right upper extremity Code(s): L03.113 - CELLULITIS OF RIGHT UPPER LIMB SNOMED Code(s): 819307122 Comment: - IV vanco and cefepime - Pending consult with ID - US now with intramuscular abcess - Dr. Zaidi consulted for I&D - Midline inserted - Morphine and ativan PRN - NPO to start now - Per poison control, observe for compartment syndrome or need for fasciotomy (2) Drug abuse and dependence Code(s): F19.20 - OTHER PSYCHOACTIVE SUBSTANCE DEPENDENCE, UNCOMPLICATED SNOMED Code(s): 5590036 Comment: - Offered SW help, patient declines (3) Sepsis Comment: - 2/2 cellulitis/abcess, continue IVNS fluid resuscitation - Continue IV atbx - Draw cultures again today with midline insertion given new abcess formation and LA - Trend temps - HR and BP stable on tele, if any changes, will consider ECHO Status and Disposition: Remain inpatient, will likely need I&D and continued IV atbx. Counseling and/or Coordination of Care Minutes: Coordinated with patient, staff and Dr. Zaidi
[2017-10-22 11:21] LABS: ABS Basophils 0 10^3/ul (0-0.2); ABS Eosinophils 0.3 10^3/ul (0-0.6); ABS Lymphocytes 1.7 10^3/ul (1.0-4.8); ABS Monocytes 0.8 10^3/ul (0-0.8); ABS Neutrophils 9.3 10^3/ul (1.5-7.7); ABS Nucleated RBC 0 10^3/ul; Eosinophil % 2.6 % (0-6); Hematocrit 36 % (35-47); Hemoglobin 12.2 g/dl (12.0-16.0); Lymphocyte % 13.7 % (25-47); Mean Corpuscular HGB Conc 34 g/dl (31-36); Mean Corpuscular Hemoglobin 29 pg (27-31); Mean Corpuscular Volume 86 fL (80-97); Mean Platelet Volume 7 um3 (7.4-10.4); Nucleated Red Blood Cells % 0; Platelet Count 435 10^3/ul (150-450); Red Blood Count 4.15 10^6/ul (4.0-5.4); Red Cell Distribution Width 13 % (10.5-15); White Blood Count 12.1 10^3/ul (3.5-10.8)
[2017-10-22] MEDS: Nicotine PATCH 14 MG/24 HR* PATCH TRANSDERM SCH (11:25)
[2017-10-22] MEDS: Cefepime 1 GM in Dextrose(*) 1 GM/50 ML BAG IV SCH ×2 (11:25→22:30)
[2017-10-22] MEDS: LORazepam INJ* 2 MG/ML 1 ML VIAL IV PUSH PRN (11:25)
[2017-10-22] MEDS: Morphine INJ* 2 MG/ML 1 ML SYRINGE (TWO MG - NEW SYRINGE VERSION) IV PRN (11:44)
[2017-10-22 13:02] LABS: EGFR Non-African American 127.2 (>60)
[2017-10-22] MEDS: traMADol TAB* 50 MG PO PRN (15:00)
--- NOTE | 2017-10-22 15:25 | PRO ---
AMENDED REPORT NOW INCLUDES DATE OF PROCEDURE - ESIGNED BEFORE ADJUSTMENT * CC: Dr. Deonte Cheng * DATE OF PROCEDURE: 10/22/17 DATE OF : [birth year] SURGEON: Lev Zaidi MD DIRECTOR DIGITAL COMMUNICATIONS: None. ANESTHESIOLOGIST: None. PRE-OP DIAGNOSIS: Abscess, right upper arm. POST-OP DIAGNOSIS: Abscess, right upper arm. OPERATIVE PROCEDURE: Incision and drainage of abscess of right upper arm. INDICATIONS: The patient is a 27-year-old female I was asked to consult on by the hospitalist service for a right upper arm abscess secondary to drug injection. I have reviewed her imaging and examined the patient. On examination, there is erythema, swelling, tenderness, fullness and fluctuance of the upper arm. The maximal area of fluctuance and tenderness covers an area of about 5 x 8 cm and after discussion with the patient, it was decided that I and D would be carried out. DESCRIPTION OF PROCEDURE: The area was prepped with alcohol and a small wheel of 2% lidocaine, a total of 5 mL was utilized and a 2 cm incision was created into the abscess cavity and thick pus and blood was forthcoming. The cavity was irrigated with sterile saline and culture was taken. A bulky gauze wrap dressing was placed. She tolerated this well. Specimen was sent to the lab for cultures and dressing changes will be required until it heals. [id number]/CPS #: [id number] MTDD
[2017-10-22] MEDS: Nicotine Patch Removal NOTE PATCH OFF SCH (20:00)
[2017-10-23] MEDS: oxyCODONE/Acetamin 5/325 MG* TAB PO PRN ×2 (02:20→23:12)
[2017-10-23] MEDS ORDERED: Vancomycin Trough Check NOTE FOLLOW UP ONE (06:30)
[2017-10-23] MEDS: Vancomycin(*) 1,000 MG in D5W 250 ML BAG* 250 ML IVPB SCH (07:56)
[2017-10-23] MEDS: Nicotine PATCH 14 MG/24 HR* PATCH TRANSDERM SCH (07:56)
[2017-10-23 08:10] LABS: EGFR Non-African American 122.3 (>60)
[2017-10-23] MEDS: Mouth Piece, Nicotine* 1 EACH CARTRIDGE INH PRN (09:05)
[2017-10-23] MEDS: Nicotine Inhaler* 10 MG AMP INH PRN (09:05)
--- NOTE | 2017-10-23 10:36 | PN ---
Progress Note - Progress Note Date of Service: 10/23/17 Note: Day #2 s/p I&D right upper arm abscess. Afebrile Pain decreased. C&S pending Still with bloody purulent drainage. Erythema down. No new areas of concern. IMP: Cont. Abx per medicine Await C&S Cont local wound care. OK to shower
[2017-10-23] MEDS: Cefepime 1 GM in Dextrose(*) 1 GM/50 ML BAG IV SCH ×2 (11:47→22:02)
--- NOTE | 2017-10-23 12:14 | PN ---
Subjective Date of Service: 10/23/17 Interval History: Patient seen and examined. Per staff, patient has been yelling at father (?), boyfriend(?), other friends and or family members on the phone and in person. Security was in the room last night because of disruptive behavior. Patient making statements "I have to get out of here" "I lost my job" "I'm homeless now " screaming and crying. De-escalated patient verbally. Explained her options, stay and be treated, heal the abscess and work with our SW on rehab and housing or sign out AM, have midline removed, potentially decompensate, progress to sepsis, failure, endocarditis and . Patient has agreed to stay and be treated. Advised her to limit visitors that would interfere with her care. She is agreeable. States arm pain is improving, denies fever or chills, no headache , no chest pain, no SOB, no n/v. Objective Active Medications: Acetaminophen (Tylenol Tab*) 650 mg PO Q6H PRN PRN Reason: pain/fever Last Admin: 10/20/17 21:53 Dose: 650 mg Device (Nicotine Mouth Piece*) 1 each INH .USE WITH NICOTROL PRN PRN Reason: CRAVING Last Admin: 10/23/17 09:05 Dose: 1 each Diphenhydramine HCl (Benadryl Po*) 50 mg PO Q6H PRN PRN Reason: ANXIETY Last Admin: 10/22/17 23:12 Dose: 50 mg Heparin Sodium (Porcine) (Heparin Flush Picc/Ml/Cvc(*)) 1 ml FLUSH 0600,1800 [facility] PRN Reason: Protocol Last Admin: 10/23/17 05:55 Dose: 1 ml Lactated Ringer's (Lactated Ringers 1000 Ml Bag*) 1,000 mls @ 150 mls/hr IV PER RATE [facility] Last Admin: 10/23/17 02:20 Dose: 150 mls/hr Cefepime HCl (Maxipime 1 Gm In Dextrose Duplex (*)) 1 gm in 50 mls @ 100 mls/ hr IV Q12H [facility] Last Admin: 10/23/17 11:47 Dose: 100 mls/hr Vancomycin HCl 1,000 mg/ (Dextrose) 250 mls @ 166.667 mls/hr IVPB Q8H [facility] Last Admin: 10/23/17 07:56 Dose: 166.667 mls/hr Lorazepam (Ativan Inj*) 1 mg IV PUSH Q4H PRN PRN Reason: AGITATION Last Admin: 10/22/17 11:25 Dose: 1 mg Morphine Sulfate (Morphine Inj (Syringe)*) 2 mg IV Q4H PRN PRN Reason: PAIN - SEVERE Last Admin: 10/22/17 11:44 Dose: 2 mg Nicotine (Nicotine Inhaler*) 10 mg INH Q2H PRN PRN Reason: CRAVING Last Admin: 10/23/17 09:05 Dose: 10 mg Nicotine (Nicotine Patch 14 Mg/24 Hr*) 1 patch TRANSDERM DAILY [facility] Last Admin: 10/23/17 07:56 Dose: 1 patch Nicotine Polacrilex (Nicotine Gum*) 2 mg PO Q2H PRN PRN Reason: CRAVING Ondansetron HCl (Zofran Inj*) 4 mg IV Q6H PRN PRN Reason: NAUSEA Oxycodone/Acetaminophen (Percocet 5/325 Tab*) 1 tab PO Q4H PRN PRN Reason: PAIN Last Admin: 10/23/17 02:20 Dose: 1 tab Pharmacy Consult (Vancomycin Per Pharmacy*) 1 note FOLLOW UP . PRN PRN Reason: PER PROTOCOL Pharmacy Profile Note (Nicotine Patch Removal Note*) 1 note PATCH OFF 2100 [facility] Last Admin: 10/22/17 20:00 Dose: 1 note Tramadol HCl (Ultram*) 100 mg PO Q6H PRN PRN Reason: PAIN Last Admin: 10/22/17 15:00 Dose: 100 mg Vital Signs - 8 hr 10/23/17 10/23/17 10/23/17 04:56 08:00 09:06 Temperature 98.2 F Pulse Rate 83 Respiratory 18 18 16 Rate Blood Pressure 118/83 (mmHg) O2 Sat by Pulse 84 Oximetry Oxygen Devices in Use Now: None Appearance: Distressed, crying, uncooperative initially Eyes: No Scleral Icterus, PERRLA Ears/Nose/Mouth/Throat: NL Teeth, Lips, Gums, Mucous Membranes Moist Neck: NL Appearance and Movements; NL JVP, Trachea Midline Respiratory: Symmetrical Chest Expansion and Respiratory Effort, Clear to Auscultation Cardiovascular: NL Sounds; No Murmurs; No JVD Abdominal: NL Sounds; No Tenderness; No Distention Extremities: No Clubbing, Cyanosis Skin: - - improved erythema to RUE, I&D site dressed, CDI, wound is open and draining as per RN (not packed) Neurological: Alert and Oriented x 3 Nutrition: Taking PO's Result Diagrams: 10/22/17 11:00 10/23/17 06:35 Additional Lab and Data: Lab Results 10/20/17 10/20/17 10/20/17 Range/Units 09:11 09:11 09:11 WBC (3.5-10.8) 10^3/ul RBC (4.0-5.4) 10^6/ul Hgb (12.0-16.0) g/dl Hct (35-47) % MCV (80-97) fL MCH (27-31) pg MCHC (31-36) g/dl RDW (10.5-15) % Plt Count (150-450) 10^3/ul MPV (7.4-10.4) um3 Neut % (Auto) (38-83) % Lymph % (Auto) (25-47) % [place] % (Auto) (1-9) % Eos % (Auto) (0-6) % Baso % (Auto) (0-2) % Absolute Neuts (auto) (1.5-7.7) 10^3/ul Absolute Lymphs (auto) (1.0-4.8) 10^3/ul Absolute Monos (auto) (0-0.8) 10^3/ul Absolute Eos (auto) (0-0.6) 10^3/ul Absolute Basos (auto) (0-0.2) 10^3/ul Absolute Nucleated RBC 10^3/ul Nucleated RBC % INR (Anticoag Therapy) 1.11 H (0.77-1.02) APTT 28.8 (26.0-36.3) seconds Sodium 132 L (133-145) mmol/L Potassium 4.0 (3.5-5.0) mmol/L Chloride 103 (101-111) mmol/L Carbon Dioxide 21 L (22-32) mmol/L Anion Gap 8 (2-11) mmol/L BUN 6 (6-24) mg/dL Creatinine 0.67 (0.51-0.95) mg/dL Est GFR ( Amer) 135.8 (>60) Est GFR (Non-Af Amer) 105.6 (>60) BUN/Creatinine Ratio 9.0 (8-20) Glucose 93 (70-100) mg/dL Lactic Acid (0.5-2.0) mmol/L Calcium 9.1 (8.6-10.3) mg/dL Total Bilirubin 0.40 (0.2-1.0) mg/dL AST 14 (13-39) U/L ALT 12 (7-52) U/L Alkaline Phosphatase 115 H (34-104) U/L Total Creatine Kinase 74 (10-223) U/L CK-MB (CK-2) 5.2 (0.6-6.3) ng/mL Troponin I 0.06 H* (<0.04) ng/mL C-Reactive Protein 258.44 H (< 5.00) mg/L B-Natriuretic Peptide 122 H ( - 100) pg/mL Total Protein 7.2 (6.4-8.9) g/dL Albumin 3.9 (3.2-5.2) g/dL Globulin 3.3 (2-4) g/dL Albumin/Globulin Ratio 1.2 (1-3) Lipase 16 (11.0-82.0) U/L TSH 0.40 (0.34-5.60) mcIU/mL Beta HCG, Quant 1.66 mIU/mL Salicylates < 2.50 (<30) mg/dL Acetaminophen < 15 mcg/mL Serum Alcohol < 10 (<10) mg/dL 10/20/17 10/20/17 Range/Units 09:11 09:11 WBC 27.4 H (3.5-10.8) 10^3/ul RBC 4.76 (4.0-5.4) 10^6/ul Hgb 13.9 (12.0-16.0) g/dl Hct 42 (35-47) % MCV 88 (80-97) fL MCH 29 (27-31) pg MCHC 33 (31-36) g/dl RDW 13 (10.5-15) % Plt Count 435 (150-450) 10^3/ul MPV 7 L (7.4-10.4) um3 Neut % (Auto) 79.8 (38-83) % Lymph % (Auto) 14.2 L (25-47) % [place] % (Auto) 5.2 (1-9) % Eos % (Auto) 0.4 (0-6) % Baso % (Auto) 0.4 (0-2) % Absolute Neuts (auto) 21.9 H (1.5-7.7) 10^3/ul Absolute Lymphs (auto) 3.9 (1.0-4.8) 10^3/ul Absolute Monos (auto) 1.4 H (0-0.8) 10^3/ul Absolute Eos (auto) 0.1 (0-0.6) 10^3/ul Absolute Basos (auto) 0.1 (0-0.2) 10^3/ul Absolute Nucleated RBC 0 10^3/ul Nucleated RBC % 0 INR (Anticoag Therapy) (0.77-1.02) APTT (26.0-36.3) seconds Sodium (133-145) mmol/L Potassium (3.5-5.0) mmol/L Chloride (101-111) mmol/L Carbon Dioxide (22-32) mmol/L Anion Gap (2-11) mmol/L BUN (6-24) mg/dL Creatinine (0.51-0.95) mg/dL Est GFR ( Amer) (>60) Est GFR (Non-Af Amer) (>60) BUN/Creatinine Ratio (8-20) Glucose (70-100) mg/dL Lactic Acid 1.1 (0.5-2.0) mmol/L Calcium (8.6-10.3) mg/dL Total Bilirubin (0.2-1.0) mg/dL AST (13-39) U/L ALT (7-52) U/L Alkaline Phosphatase (34-104) U/L Total Creatine Kinase (10-223) U/L CK-MB (CK-2) (0.6-6.3) ng/mL Troponin I (<0.04) ng/mL C-Reactive Protein (< 5.00) mg/L B-Natriuretic Peptide ( - 100) pg/mL Total Protein (6.4-8.9) g/dL Albumin (3.2-5.2) g/dL Globulin (2-4) g/dL Albumin/Globulin Ratio (1-3) Lipase (11.0-82.0) U/L TSH (0.34-5.60) mcIU/mL Beta HCG, Quant mIU/mL Salicylates (<30) mg/dL Acetaminophen mcg/mL Serum Alcohol (<10) mg/dL Microbiology and Other Data: Microbiology 10/22/17 11:45 Gram Stain - Final Wound - Wound Wound Culture - Preliminary No Growth Day 1 10/22/17 11:00 Aerobic Blood Culture - Preliminary Blood Venous No Growth Day 1 Anaerobic Blood Culture - Preliminary No Growth Day 1 10/22/17 11:00 Aerobic Blood Culture - Preliminary Blood Venous No Growth Day 1 Anaerobic Blood Culture - Preliminary No Growth Day 1 Diagnostic Imaging: REPEAT US LUE: Patient Name: ASHELY SO Medical Record#: [id number] Ordering Physician: Jostin Schmidt MD Acct.#: [id number] : 1990 Age: 27 Sex: F Location: [address] [place] [address] MEDICAL/TELEMETRY Exam Date: 10/22/17 045 ADM Status: ADM IN Order Information: US SOFT TISSUE EXT RT COMP Accession Number: [id number] CPT: 71962 INDICATION: Right upper arm erythema and pain COMPARISON: None TECHNIQUE: Real time ultrasound images of the right upper arm were acquired with carey scale and Doppler color flow imaging. FINDINGS: Within the musculature of the right upper arm there is an avascular and heterogeneous collection with peripheral vascularity measuring 8.8 x 3.9 x 1.9 cm. IMPRESSION: Sonographic findings are consistent with either intramuscular perimuscular right upper arm abscess. <Electronically signed by Jacek Molina MD in OV> 10/22/17956 Dictated By: Jacek Molina MD Dictated Date/Time: 10/22/17956 Transcribed Date/Time: 10/22/17954 Copy to: CC:Kriss Gr DO; Justin Soria MD; Saul Darden MD; Jostin Schmidt MD ; Deonte Cheng MD Imaging - [facility] Imaging [facility] [address] [address] ph [phone]) ph [phone]) ph [phone]) 1 of 10 24 of Assess/Plan/Problems-Billing Assessment: This is a 27 year old female patient with hx of injection drug abuse that presents with cellulitis and abcess of LUE, r/o sepsis with some clinical improvement today. - Patient Problems (1) Cellulitis of right upper extremity Code(s): L03.113 - CELLULITIS OF RIGHT UPPER LIMB SNOMED Code(s): 415357853 Comment: - Continue IV vanco and cefepime - Pending consult with ID - s/p I&D with Dr. Zaidi - Local wound care/dressing changes - Morphine and ativan PRN (2) Drug abuse and dependence Code(s): F19.20 - OTHER PSYCHOACTIVE SUBSTANCE DEPENDENCE, UNCOMPLICATED SNOMED Code(s): 7940491 Comment: - Consulted SW (3) Sepsis Comment: - Afebrile, BP stable, s/p fluid resuscitation Status and Disposition: Remain inpatient, continue IV atbx. Counseling and/or Coordination of Care Minutes: coordinated with patient and staff.
[2017-10-23] MEDS: Vancomycin(*) 1,000 MG in NS 0.9% 250 ML* 250 ML IVPB SCH ×2 (15:20→23:11)
[2017-10-23] MEDS: diPHENhydraMINE PO* 50 MG PO PRN (22:02)
[2017-10-23] MEDS: Nicotine Patch Removal NOTE PATCH OFF SCH (23:22)
[2017-10-24] MEDS: Vancomycin(*) 1,000 MG in NS 0.9% 250 ML* 250 ML IVPB SCH ×2 (07:10→16:25)
[2017-10-24] MEDS: Nicotine PATCH 14 MG/24 HR* PATCH TRANSDERM SCH (08:42)
[2017-10-24] MEDS: Mouth Piece, Nicotine* 1 EACH CARTRIDGE INH PRN (10:05)
[2017-10-24] MEDS: Nicotine Inhaler* 10 MG AMP INH PRN ×2 (10:05→23:03)
[2017-10-24] MEDS: Cefepime 1 GM in Dextrose(*) 1 GM/50 ML BAG IV SCH ×2 (10:24→23:04)
--- NOTE | 2017-10-24 11:01 | PN ---
Subjective Date of Service: 10/24/17 Interval History: Patient seen and examined. No acute overnight events. Patient more calm, afebrile, less pain. No chills, no complaints. Wants to go home, although she is now homeless? Objective Active Medications: Acetaminophen (Tylenol Tab*) 650 mg PO Q6H PRN PRN Reason: pain/fever Last Admin: 10/20/17 21:53 Dose: 650 mg Device (Nicotine Mouth Piece*) 1 each INH .USE WITH NICOTROL PRN PRN Reason: CRAVING Last Admin: 10/24/17 10:05 Dose: 1 each Diphenhydramine HCl (Benadryl Po*) 50 mg PO Q6H PRN PRN Reason: ANXIETY Last Admin: 10/23/17 22:02 Dose: 50 mg Heparin Sodium (Porcine) (Heparin Flush Picc/Ml/Cvc(*)) 1 ml FLUSH 0600,1800 [facility] PRN Reason: Protocol Last Admin: 10/24/17 05:52 Dose: 1 ml Lactated Ringer's (Lactated Ringers 1000 Ml Bag*) 1,000 mls @ 150 mls/hr IV PER RATE [facility] Last Admin: 10/24/17 01:13 Dose: 150 mls/hr Cefepime HCl (Maxipime 1 Gm In Dextrose Duplex (*)) 1 gm in 50 mls @ 100 mls/ hr IV Q12H [facility] Last Admin: 10/24/17 10:24 Dose: 100 mls/hr Vancomycin HCl 1,000 mg/ (Sodium Chloride) 250 mls @ 166.667 mls/hr IVPB 0700, 1500,2300 [facility] Last Admin: 10/24/17 07:10 Dose: 166.667 mls/hr Lorazepam (Ativan Inj*) 1 mg IV PUSH Q4H PRN PRN Reason: AGITATION Last Admin: 10/22/17 11:25 Dose: 1 mg Morphine Sulfate (Morphine Inj (Syringe)*) 2 mg IV Q4H PRN PRN Reason: PAIN - SEVERE Last Admin: 10/22/17 11:44 Dose: 2 mg Nicotine (Nicotine Inhaler*) 10 mg INH Q2H PRN PRN Reason: CRAVING Last Admin: 10/24/17 10:05 Dose: 10 mg Nicotine (Nicotine Patch 14 Mg/24 Hr*) 1 patch TRANSDERM DAILY [facility] Last Admin: 10/24/17 08:42 Dose: 1 patch Nicotine Polacrilex (Nicotine Gum*) 2 mg PO Q2H PRN PRN Reason: CRAVING Ondansetron HCl (Zofran Inj*) 4 mg IV Q6H PRN PRN Reason: NAUSEA Oxycodone/Acetaminophen (Percocet 5/325 Tab*) 1 tab PO Q4H PRN PRN Reason: PAIN Last Admin: 10/23/17 23:12 Dose: 1 tab Pharmacy Consult (Vancomycin Per Pharmacy*) 1 note FOLLOW UP . PRN PRN Reason: PER PROTOCOL Pharmacy Profile Note (Nicotine Patch Removal Note*) 1 note PATCH OFF 2100 [facility] Last Admin: 10/23/17 23:22 Dose: 1 note Tramadol HCl (Ultram*) 100 mg PO Q6H PRN PRN Reason: PAIN Last Admin: 10/22/17 15:00 Dose: 100 mg Vital Signs - 8 hr 10/24/17 10/24/17 10/24/17 04:04 07:52 08:00 Temperature 98.2 F 96.9 F Pulse Rate 58 75 Respiratory 16 16 16 Rate Blood Pressure 128/81 141/75 (mmHg) O2 Sat by Pulse 100 99 Oximetry Oxygen Devices in Use Now: None Appearance: Alert, less distress, seems a bit despondent Eyes: No Scleral Icterus, PERRLA Ears/Nose/Mouth/Throat: NL Teeth, Lips, Gums Neck: NL Appearance and Movements; NL JVP, Trachea Midline Respiratory: Symmetrical Chest Expansion and Respiratory Effort, Clear to Auscultation Cardiovascular: NL Sounds; No Murmurs; No JVD Abdominal: NL Sounds; No Tenderness; No Distention Extremities: No Edema, No Clubbing, Cyanosis, - - erythema clearing to RUE and neck, dressing, CDI Neurological: Alert and Oriented x 3 Nutrition: Taking PO's Result Diagrams: 10/22/17 11:00 10/23/17 06:35 Additional Lab and Data: Lab Results 10/20/17 10/20/17 10/20/17 Range/Units 09:11 09:11 09:11 WBC (3.5-10.8) 10^3/ul RBC (4.0-5.4) 10^6/ul Hgb (12.0-16.0) g/dl Hct (35-47) % MCV (80-97) fL MCH (27-31) pg MCHC (31-36) g/dl RDW (10.5-15) % Plt Count (150-450) 10^3/ul MPV (7.4-10.4) um3 Neut % (Auto) (38-83) % Lymph % (Auto) (25-47) % [place] % (Auto) (1-9) % Eos % (Auto) (0-6) % Baso % (Auto) (0-2) % Absolute Neuts (auto) (1.5-7.7) 10^3/ul Absolute Lymphs (auto) (1.0-4.8) 10^3/ul Absolute Monos (auto) (0-0.8) 10^3/ul Absolute Eos (auto) (0-0.6) 10^3/ul Absolute Basos (auto) (0-0.2) 10^3/ul Absolute Nucleated RBC 10^3/ul Nucleated RBC % INR (Anticoag Therapy) 1.11 H (0.77-1.02) APTT 28.8 (26.0-36.3) seconds Sodium 132 L (133-145) mmol/L Potassium 4.0 (3.5-5.0) mmol/L Chloride 103 (101-111) mmol/L Carbon Dioxide 21 L (22-32) mmol/L Anion Gap 8 (2-11) mmol/L BUN 6 (6-24) mg/dL Creatinine 0.67 (0.51-0.95) mg/dL Est GFR ( Amer) 135.8 (>60) Est GFR (Non-Af Amer) 105.6 (>60) BUN/Creatinine Ratio 9.0 (8-20) Glucose 93 (70-100) mg/dL Lactic Acid (0.5-2.0) mmol/L Calcium 9.1 (8.6-10.3) mg/dL Total Bilirubin 0.40 (0.2-1.0) mg/dL AST 14 (13-39) U/L ALT 12 (7-52) U/L Alkaline Phosphatase 115 H (34-104) U/L Total Creatine Kinase 74 (10-223) U/L CK-MB (CK-2) 5.2 (0.6-6.3) ng/mL Troponin I 0.06 H* (<0.04) ng/mL C-Reactive Protein 258.44 H (< 5.00) mg/L B-Natriuretic Peptide 122 H ( - 100) pg/mL Total Protein 7.2 (6.4-8.9) g/dL Albumin 3.9 (3.2-5.2) g/dL Globulin 3.3 (2-4) g/dL Albumin/Globulin Ratio 1.2 (1-3) Lipase 16 (11.0-82.0) U/L TSH 0.40 (0.34-5.60) mcIU/mL Beta HCG, Quant 1.66 mIU/mL Salicylates < 2.50 (<30) mg/dL Acetaminophen < 15 mcg/mL Serum Alcohol < 10 (<10) mg/dL 10/20/17 10/20/17 Range/Units 09:11 09:11 WBC 27.4 H (3.5-10.8) 10^3/ul RBC 4.76 (4.0-5.4) 10^6/ul Hgb 13.9 (12.0-16.0) g/dl Hct 42 (35-47) % MCV 88 (80-97) fL MCH 29 (27-31) pg MCHC 33 (31-36) g/dl RDW 13 (10.5-15) % Plt Count 435 (150-450) 10^3/ul MPV 7 L (7.4-10.4) um3 Neut % (Auto) 79.8 (38-83) % Lymph % (Auto) 14.2 L (25-47) % [place] % (Auto) 5.2 (1-9) % Eos % (Auto) 0.4 (0-6) % Baso % (Auto) 0.4 (0-2) % Absolute Neuts (auto) 21.9 H (1.5-7.7) 10^3/ul Absolute Lymphs (auto) 3.9 (1.0-4.8) 10^3/ul Absolute Monos (auto) 1.4 H (0-0.8) 10^3/ul Absolute Eos (auto) 0.1 (0-0.6) 10^3/ul Absolute Basos (auto) 0.1 (0-0.2) 10^3/ul Absolute Nucleated RBC 0 10^3/ul Nucleated RBC % 0 INR (Anticoag Therapy) (0.77-1.02) APTT (26.0-36.3) seconds Sodium (133-145) mmol/L Potassium (3.5-5.0) mmol/L Chloride (101-111) mmol/L Carbon Dioxide (22-32) mmol/L Anion Gap (2-11) mmol/L BUN (6-24) mg/dL Creatinine (0.51-0.95) mg/dL Est GFR ( Amer) (>60) Est GFR (Non-Af Amer) (>60) BUN/Creatinine Ratio (8-20) Glucose (70-100) mg/dL Lactic Acid 1.1 (0.5-2.0) mmol/L Calcium (8.6-10.3) mg/dL Total Bilirubin (0.2-1.0) mg/dL AST (13-39) U/L ALT (7-52) U/L Alkaline Phosphatase (34-104) U/L Total Creatine Kinase (10-223) U/L CK-MB (CK-2) (0.6-6.3) ng/mL Troponin I (<0.04) ng/mL C-Reactive Protein (< 5.00) mg/L B-Natriuretic Peptide ( - 100) pg/mL Total Protein (6.4-8.9) g/dL Albumin (3.2-5.2) g/dL Globulin (2-4) g/dL Albumin/Globulin Ratio (1-3) Lipase (11.0-82.0) U/L TSH (0.34-5.60) mcIU/mL Beta HCG, Quant mIU/mL Salicylates (<30) mg/dL Acetaminophen mcg/mL Serum Alcohol (<10) mg/dL Microbiology and Other Data: Microbiology Microbiology 10/20/17 09:11 Aerobic Blood Culture - Preliminary Blood Venous No Growth Day 4 Anaerobic Blood Culture - Preliminary No Growth Day 4 10/20/17 08:57 Aerobic Blood Culture - Preliminary Blood Venous No Growth Day 4 Anaerobic Blood Culture - Preliminary No Growth Day 4 10/22/17 11:45 Gram Stain - Final Wound - Wound Wound Culture - Preliminary No Growth Day 1 10/22/17 11:00 Aerobic Blood Culture - Preliminary Blood Venous No Growth Day 1 Anaerobic Blood Culture - Preliminary No Growth Day 1 10/22/17 11:00 Aerobic Blood Culture - Preliminary Blood Venous No Growth Day 1 Anaerobic Blood Culture - Preliminary No Growth Day 1 Diagnostic Imaging: REPEAT US LUE: Patient Name: ASHELY SO Medical Record#: [id number] Ordering Physician: Jostin Schmidt MD Acct.#: [id number] : 1990 Age: 27 Sex: F Location: [address] [place] [address] MEDICAL/TELEMETRY Exam Date: 10/22/17454 ADM Status: ADM IN Order Information: US SOFT TISSUE EXT RT COMP Accession Number: [id number] CPT: 34459 INDICATION: Right upper arm erythema and pain COMPARISON: None TECHNIQUE: Real time ultrasound images of the right upper arm were acquired with carey scale and Doppler color flow imaging. FINDINGS: Within the musculature of the right upper arm there is an avascular and heterogeneous collection with peripheral vascularity measuring 8.8 x 3.9 x 1.9 cm. IMPRESSION: Sonographic findings are consistent with either intramuscular perimuscular right upper arm abscess. <Electronically signed by Jacek Molina MD in OV> 10/22/17956 Dictated By: Jacek Molina MD Dictated Date/Time: 10/22/17956 Transcribed Date/Time: 10/22/17954 Copy to: CC:Kriss Gr DO; Justin Soria MD; Saul Darden MD; Jostin Schmidt MD ; Deonte Cheng MD Imaging - [facility] Imaging - [facility] Imaging - [facility] [address] [address] ph ([phone]) ph ([phone]) ph ([phone]) Assess/Plan/Problems-Billing Assessment: This is a 27 year old female patient with hx of injection drug abuse that presents with cellulitis and abcess of RUE, with continuing clinical improvement. - Patient Problems (1) Cellulitis of right upper extremity Code(s): L03.113 - CELLULITIS OF RIGHT UPPER LIMB SNOMED Code(s): 852212165 Comment: - Continue IV vanco and cefepime - Pending consult with ID - Loculated abcess drained by Dr. Zaidi 10/22 - Local wound care/dressing changes, Per RN less drainage overnight (moderate now) - Morphine and ativan PRN (2) Drug abuse and dependence Code(s): F19.20 - OTHER PSYCHOACTIVE SUBSTANCE DEPENDENCE, UNCOMPLICATED SNOMED Code(s): 3326432 Comment: - Consulted SW, patient counseled extensively (3) Sepsis Comment: - Afebrile, BP stable, s/p fluid resuscitation, resolved Status and Disposition: Remain inpatient, continue IV atbx. Appreciate further recs from ID. Counseling and/or Coordination of Care Minutes: coordinated with patient and staff
--- NOTE | 2017-10-24 11:21 | PN ---
Progress Note - Progress Note Date of Service: 10/24/17 SOAP: Subjective: Pt seen and examined. Feeling better. Objective: af vss RUE; dressing removed, seropurulent drainage. wound granulating. Cx P Assessment: RUE abscess 2ary to IVD use Plan: abx paciking change daily while hospitalized. F/u in surgical associated office will follow QOD while here; can go home with gauze bandage and f/u at [facility]
[2017-10-24] MEDS: LORazepam INJ* 2 MG/ML 1 ML VIAL IV PUSH PRN (23:03)
[2017-10-25] MEDS: Vancomycin(*) 1,000 MG in NS 0.9% 250 ML* 250 ML IVPB SCH ×4 (00:40→22:43)
[2017-10-25] MEDS: Nicotine Patch Removal NOTE PATCH OFF SCH ×2 (00:40→21:10)
[2017-10-25] MEDS: traMADol TAB* 50 MG PO PRN (07:49)
[2017-10-25] MEDS: Nicotine Inhaler* 10 MG AMP INH PRN ×2 (07:49→21:12)
[2017-10-25] MEDS: Nicotine PATCH 14 MG/24 HR* PATCH TRANSDERM SCH (07:50)
[2017-10-25] MEDS: Acetaminophen TAB* 325 MG PO PRN (07:50)
--- NOTE | 2017-10-25 10:48 | PN ---
Subjective Date of Service: 10/25/17 Interval History: Patient seen and examined at bedside. She reports improvement in the drainage from her surgical wound. Denies fever/chills, CP, SOB, n/v. Hopeful to go home soon. She reports she will be staying with a friend in [place] but will need help with wound care. Family History: Unchanged from Admission Social History: Unchanged from Admission Past Medical History: Unchanged from Admission Objective Active Medications: Acetaminophen (Tylenol Tab*) 650 mg PO Q6H PRN PRN Reason: pain/fever Last Admin: 10/25/17 07:50 Dose: 650 mg Device (Nicotine Mouth Piece*) 1 each INH .USE WITH NICOTROL PRN PRN Reason: CRAVING Last Admin: 10/24/17 10:05 Dose: 1 each Diphenhydramine HCl (Benadryl Po*) 50 mg PO Q6H PRN PRN Reason: ANXIETY Last Admin: 10/23/17 22:02 Dose: 50 mg Heparin Sodium (Porcine) (Heparin Flush Picc/Ml/Cvc(*)) 1 ml FLUSH 0600,1800 [facility] PRN Reason: Protocol Last Admin: 10/25/17 04:02 Dose: Not Given Lactated Ringer's (Lactated Ringers 1000 Ml Bag*) 1,000 mls @ 150 mls/hr IV PER RATE [facility] Last Admin: 10/25/17 07:56 Dose: 150 mls/hr Cefepime HCl (Maxipime 1 Gm In Dextrose Duplex (*)) 1 gm in 50 mls @ 100 mls/ hr IV Q12H [facility] Last Admin: 10/24/17 23:04 Dose: 100 mls/hr Vancomycin HCl 1,000 mg/ (Sodium Chloride) 250 mls @ 166.667 mls/hr IVPB 0700, 1500,2300 [facility] Last Admin: 10/25/17 07:52 Dose: 166.667 mls/hr Lorazepam (Ativan Inj*) 1 mg IV PUSH Q4H PRN PRN Reason: AGITATION Last Admin: 10/24/17 23:03 Dose: 1 mg Morphine Sulfate (Morphine Inj (Syringe)*) 2 mg IV Q4H PRN PRN Reason: PAIN - SEVERE Last Admin: 10/22/17 11:44 Dose: 2 mg Nicotine (Nicotine Inhaler*) 10 mg INH Q2H PRN PRN Reason: CRAVING Last Admin: 10/25/17 07:49 Dose: 10 mg Nicotine (Nicotine Patch 14 Mg/24 Hr*) 1 patch TRANSDERM DAILY [facility] Last Admin: 10/25/17 07:50 Dose: 1 patch Nicotine Polacrilex (Nicotine Gum*) 2 mg PO Q2H PRN PRN Reason: CRAVING Ondansetron HCl (Zofran Inj*) 4 mg IV Q6H PRN PRN Reason: NAUSEA Oxycodone/Acetaminophen (Percocet 5/325 Tab*) 1 tab PO Q4H PRN PRN Reason: PAIN Last Admin: 10/23/17 23:12 Dose: 1 tab Pharmacy Consult (Vancomycin Per Pharmacy*) 1 note FOLLOW UP . PRN PRN Reason: PER PROTOCOL Pharmacy Profile Note (Nicotine Patch Removal Note*) 1 note PATCH OFF 2100 [facility] Last Admin: 10/25/17 00:40 Dose: 1 note Tramadol HCl (Ultram*) 100 mg PO Q6H PRN PRN Reason: PAIN Last Admin: 10/25/17 07:49 Dose: 100 mg Vital Signs - 8 hr 10/25/17 10/25/17 10/25/17 03:52 07:28 07:49 Temperature 97.9 F 98.4 F Pulse Rate 68 79 Respiratory 16 18 18 Rate Blood Pressure 140/85 128/70 (mmHg) O2 Sat by Pulse 100 99 Oximetry Oxygen Devices in Use Now: None Appearance: Young female, OOB to chair, NAD Eyes: No Scleral Icterus Ears/Nose/Mouth/Throat: Clear Oropharnyx, Mucous Membranes Moist Neck: NL Appearance and Movements; NL JVP Respiratory: Symmetrical Chest Expansion and Respiratory Effort, Clear to Auscultation Cardiovascular: NL Sounds; No Murmurs; No JVD, RRR Abdominal: NL Sounds; No Tenderness; No Distention Extremities: - - RUE with mild erythema, wound with seropurulent drainage Neurological: Alert and Oriented x 3, NL Muscle Strength and Tone Lines/Tubes/Other Access: Clean, Dry and Intact Peripheral IV Nutrition: Taking PO's Result Diagrams: 10/22/17 11:00 10/23/17 06:35 Additional Lab and Data: Lab Results 10/20/17 10/20/17 10/20/17 Range/Units 09:11 09:11 09:11 WBC (3.5-10.8) 10^3/ul RBC (4.0-5.4) 10^6/ul Hgb (12.0-16.0) g/dl Hct (35-47) % MCV (80-97) fL MCH (27-31) pg MCHC (31-36) g/dl RDW (10.5-15) % Plt Count (150-450) 10^3/ul MPV (7.4-10.4) um3 Neut % (Auto) (38-83) % Lymph % (Auto) (25-47) % [place] % (Auto) (1-9) % Eos % (Auto) (0-6) % Baso % (Auto) (0-2) % Absolute Neuts (auto) (1.5-7.7) 10^3/ul Absolute Lymphs (auto) (1.0-4.8) 10^3/ul Absolute Monos (auto) (0-0.8) 10^3/ul Absolute Eos (auto) (0-0.6) 10^3/ul Absolute Basos (auto) (0-0.2) 10^3/ul Absolute Nucleated RBC 10^3/ul Nucleated RBC % INR (Anticoag Therapy) 1.11 H (0.77-1.02) APTT 28.8 (26.0-36.3) seconds Sodium 132 L (133-145) mmol/L Potassium 4.0 (3.5-5.0) mmol/L Chloride 103 (101-111) mmol/L Carbon Dioxide 21 L (22-32) mmol/L Anion Gap 8 (2-11) mmol/L BUN 6 (6-24) mg/dL Creatinine 0.67 (0.51-0.95) mg/dL Est GFR ( Amer) 135.8 (>60) Est GFR (Non-Af Amer) 105.6 (>60) BUN/Creatinine Ratio 9.0 (8-20) Glucose 93 (70-100) mg/dL Lactic Acid (0.5-2.0) mmol/L Calcium 9.1 (8.6-10.3) mg/dL Total Bilirubin 0.40 (0.2-1.0) mg/dL AST 14 (13-39) U/L ALT 12 (7-52) U/L Alkaline Phosphatase 115 H (34-104) U/L Total Creatine Kinase 74 (10-223) U/L CK-MB (CK-2) 5.2 (0.6-6.3) ng/mL Troponin I 0.06 H* (<0.04) ng/mL C-Reactive Protein 258.44 H (< 5.00) mg/L B-Natriuretic Peptide 122 H ( - 100) pg/mL Total Protein 7.2 (6.4-8.9) g/dL Albumin 3.9 (3.2-5.2) g/dL Globulin 3.3 (2-4) g/dL Albumin/Globulin Ratio 1.2 (1-3) Lipase 16 (11.0-82.0) U/L TSH 0.40 (0.34-5.60) mcIU/mL Beta HCG, Quant 1.66 mIU/mL Salicylates < 2.50 (<30) mg/dL Acetaminophen < 15 mcg/mL Serum Alcohol < 10 (<10) mg/dL 10/20/17 10/20/17 Range/Units 09:11 09:11 WBC 27.4 H (3.5-10.8) 10^3/ul RBC 4.76 (4.0-5.4) 10^6/ul Hgb 13.9 (12.0-16.0) g/dl Hct 42 (35-47) % MCV 88 (80-97) fL MCH 29 (27-31) pg MCHC 33 (31-36) g/dl RDW 13 (10.5-15) % Plt Count 435 (150-450) 10^3/ul MPV 7 L (7.4-10.4) um3 Neut % (Auto) 79.8 (38-83) % Lymph % (Auto) 14.2 L (25-47) % [place] % (Auto) 5.2 (1-9) % Eos % (Auto) 0.4 (0-6) % Baso % (Auto) 0.4 (0-2) % Absolute Neuts (auto) 21.9 H (1.5-7.7) 10^3/ul Absolute Lymphs (auto) 3.9 (1.0-4.8) 10^3/ul Absolute Monos (auto) 1.4 H (0-0.8) 10^3/ul Absolute Eos (auto) 0.1 (0-0.6) 10^3/ul Absolute Basos (auto) 0.1 (0-0.2) 10^3/ul Absolute Nucleated RBC 0 10^3/ul Nucleated RBC % 0 INR (Anticoag Therapy) (0.77-1.02) APTT (26.0-36.3) seconds Sodium (133-145) mmol/L Potassium (3.5-5.0) mmol/L Chloride (101-111) mmol/L Carbon Dioxide (22-32) mmol/L Anion Gap (2-11) mmol/L BUN (6-24) mg/dL Creatinine (0.51-0.95) mg/dL Est GFR ( Amer) (>60) Est GFR (Non-Af Amer) (>60) BUN/Creatinine Ratio (8-20) Glucose (70-100) mg/dL Lactic Acid 1.1 (0.5-2.0) mmol/L Calcium (8.6-10.3) mg/dL Total Bilirubin (0.2-1.0) mg/dL AST (13-39) U/L ALT (7-52) U/L Alkaline Phosphatase (34-104) U/L Total Creatine Kinase (10-223) U/L CK-MB (CK-2) (0.6-6.3) ng/mL Troponin I (<0.04) ng/mL C-Reactive Protein (< 5.00) mg/L B-Natriuretic Peptide ( - 100) pg/mL Total Protein (6.4-8.9) g/dL Albumin (3.2-5.2) g/dL Globulin (2-4) g/dL Albumin/Globulin Ratio (1-3) Lipase (11.0-82.0) U/L TSH (0.34-5.60) mcIU/mL Beta HCG, Quant mIU/mL Salicylates (<30) mg/dL Acetaminophen mcg/mL Serum Alcohol (<10) mg/dL Microbiology and Other Data: Microbiology Microbiology 10/20/17 09:11 Aerobic Blood Culture - Preliminary Blood Venous No Growth Day 4 Anaerobic Blood Culture - Preliminary No Growth Day 4 10/20/17 08:57 Aerobic Blood Culture - Preliminary Blood Venous No Growth Day 4 Anaerobic Blood Culture - Preliminary No Growth Day 4 10/22/17 11:45 Gram Stain - Final Wound - Wound Wound Culture - Preliminary No Growth Day 1 10/22/17 11:00 Aerobic Blood Culture - Preliminary Blood Venous No Growth Day 1 Anaerobic Blood Culture - Preliminary No Growth Day 1 10/22/17 11:00 Aerobic Blood Culture - Preliminary Blood Venous No Growth Day 1 Anaerobic Blood Culture - Preliminary No Growth Day 1 Diagnostic Imaging: REPEAT US LUE: Patient Name: ASHELY SO Medical Record#: [id number] Ordering Physician: Jostin Schmidt MD Acct.#: [id number] : 1990 Age: 27 Sex: F Location: [address] [place] [address] MEDICAL/TELEMETRY Exam Date: 10/22/17454 ADM Status: ADM IN Order Information: US SOFT TISSUE EXT RT COMP Accession Number: [id number] CPT: 80003 INDICATION: Right upper arm erythema and pain COMPARISON: None TECHNIQUE: Real time ultrasound images of the right upper arm were acquired with carey scale and Doppler color flow imaging. FINDINGS: Within the musculature of the right upper arm there is an avascular and heterogeneous collection with peripheral vascularity measuring 8.8 x 3.9 x 1.9 cm. IMPRESSION: Sonographic findings are consistent with either intramuscular perimuscular right upper arm abscess. <Electronically signed by Jacek Molina MD in OV> 10/22/17956 Dictated By: Jacek Molina MD Dictated Date/Time: 10/22/17956 Transcribed Date/Time: 10/22/17954 Copy to: CC:Kriss Gr DO; Justin Soria MD; Saul Darden MD; Jostin Schmidt MD ; Deonte Cheng MD Imaging - [facility] Imaging - [facility] [address] [address] ph ([phone]) ph ([phone]) ph ([phone]) 1 of 1 of Assess/Plan/Problems-Billing Assessment: This is a 27 year old female patient with hx of injection drug abuse that presents with cellulitis and abcess of RUE, with continuing clinical improvement. - Patient Problems (1) Cellulitis of right upper extremity Code(s): L03.113 - CELLULITIS OF RIGHT UPPER LIMB Comment: - Continue IV vanco and cefepime - Pending consult with ID - Loculated abcess drained by Dr. Zaidi 10/22 - Local wound care/dressing changes - Morphine and ativan PRN (2) Drug abuse and dependence Current Visit: Yes Status: Acute Code(s): F19.20 - OTHER PSYCHOACTIVE SUBSTANCE DEPENDENCE, UNCOMPLICATED SNOMED Code(s): 2160943 Comment: - Consulted SW, patient counseled extensively (3) Sepsis Current Visit: Yes Status: Acute Comment: - Afebrile, BP stable, s/p fluid resuscitation, resolved (4) DVT prophylaxis Comment: SCDs Status and Disposition: Remain inpatient, continue IV atbx. Appreciate further recs from ID.
[2017-10-25] MEDS: LORazepam INJ* 2 MG/ML 1 ML VIAL IV PUSH PRN ×2 (10:55→22:34)
[2017-10-25] MEDS: Cefepime 1 GM in Dextrose(*) 1 GM/50 ML BAG IV SCH (10:58)
[2017-10-25] MEDS: Morphine INJ* 2 MG/ML 1 ML SYRINGE (TWO MG - NEW SYRINGE VERSION) IV PRN (22:18)
--- NOTE | 2017-10-25 22:37 | CONS ---
CONSULTATION REPORT: DATE OF CONSULT: 10/25/17 REQUESTING PROVIDER: Magalie Kelley NP CONSULTING SERVICE: Infectious Disease. REASON FOR CONSULT: Right arm abscess. IMPRESSION: 1. Right arm abscess at an injection site where she had inadvertently injected manufacturing development engineer fluid, so there is likely a caustic exposure in addition to abscess. She had been on Keflex before coming to the hospital. She had an I and D, her Gram stain showed neutrophils and no organisms. Cultures negative, probably still skin glenn including staph and strep. Has improved here on vancomycin and cefepime. 2. Injection drug use, in brief remission. RECOMMENDATIONS: Bactrim double strength tablet twice daily for 7 more days and follow up with Surgery. HISTORY OF PRESENT ILLNESS: A 27-year-old woman who injects illicit substances including recently into her right upper arm, she was injecting water, was actively injecting manufacturing development engineer fluid. A couple of days later developed pain, redness, and swelling. She was seen at [facility], treated with Keflex which she had been taking, but had progression of the right arm swelling up to her right chest and lower arm with fever, chills, and sweats. Her white count was 27,000 on admission. She had the I and D on 10/22/17 after an ultrasound showed right arm muscle abscess. The pain, swelling, and redness are much improved. She has daily dressing changes with packing. There is less and less . PAST MEDICAL HISTORY: Injection drug use. ALLERGIES: No known drug allergies. MEDICATIONS: 1. Tylenol. 2. Cefepime 1 g every 12 hours. 3. Heparin flush. 4. Nicotine gum. 5. Nicotine inhaler. 6. Nicotine patch. 7. Vicodin. 8. Vancomycin 1 g every 8 hours. SOCIAL HISTORY: She lives in [facility]. She injects methamphetamine. FAMILY HISTORY: Noncontributory. REVIEW OF SYSTEMS: All negative 14-point review of systems except as noted above. PHYSICAL EXAM: Temperature 36.4, heart rate 70, respiratory rate 18, blood pressure 125/78, and O2 sat 99% on room air. General: She is awake, not in distress. Neurologic: She is oriented x3, follows all commands. Neck: Supple. Heart: Regular rate and rhythm without murmurs, rubs, or gallops. Lungs are clear to auscultation bilaterally. Abdomen: Soft, nontender, and nondistended. There are bowel sounds present. Skin: There is no rash or splinter hemorrhages. Musculoskeletal: Right medial upper forearm, there is a 1 cm incision with mild surrounding induration. No erythema, no fluctuance or crepitus. DIAGNOSTIC STUDIES/LAB DATA: From 10/22/17, the white blood cell count is 12. Creatinine is 0.6. Please see impressions and recommendations outlined above. Thanks for asking me to see Julia LockeBoyd in consultation. [id number]/[facility] #: [id number] [facility]
[2017-10-26] MEDS: LORazepam INJ* 2 MG/ML 1 ML VIAL IV PUSH PRN (08:13)
[2017-10-26] MEDS: Nicotine Inhaler* 10 MG AMP INH PRN (08:15)
[2017-10-26] MEDS: Vancomycin(*) 1,000 MG in NS 0.9% 250 ML* 250 ML IVPB SCH (08:17)
[2017-10-26] MEDS: Nicotine PATCH 14 MG/24 HR* PATCH TRANSDERM SCH (08:19)
[2017-10-26] MEDS: traMADol TAB* 50 MG PO PRN (08:20)
--- NOTE | 2017-10-26 10:14 | PN ---
Subjective Date of Service: 10/26/17 Family History: Unchanged from Admission Social History: Unchanged from Admission Past Medical History: Unchanged from Admission Objective Active Medications: Acetaminophen (Tylenol Tab*) 650 mg PO Q6H PRN PRN Reason: pain/fever Last Admin: 10/25/17 07:50 Dose: 650 mg Device (Nicotine Mouth Piece*) 1 each INH .USE WITH NICOTROL PRN PRN Reason: CRAVING Last Admin: 10/24/17 10:05 Dose: 1 each Diphenhydramine HCl (Benadryl Po*) 50 mg PO Q6H PRN PRN Reason: ANXIETY Last Admin: 10/23/17 22:02 Dose: 50 mg Heparin Sodium (Porcine) (Heparin Flush Picc/Ml/Cvc(*)) 1 ml FLUSH 0600,1800 [facility] PRN Reason: Protocol Last Admin: 10/26/17 06:03 Dose: 1 ml Lactated Ringer's (Lactated Ringers 1000 Ml Bag*) 1,000 mls @ 150 mls/hr IV PER RATE [facility] Last Admin: 10/26/17 05:58 Dose: 150 mls/hr Vancomycin HCl 1,000 mg/ (Sodium Chloride) 250 mls @ 166.667 mls/hr IVPB 0700, 1500,2300 [facility] Last Admin: 10/26/17 08:17 Dose: 166.667 mls/hr Lorazepam (Ativan Inj*) 1 mg IV PUSH Q4H PRN PRN Reason: AGITATION Last Admin: 10/26/17 08:13 Dose: 1 mg Morphine Sulfate (Morphine Inj (Syringe)*) 2 mg IV Q4H PRN PRN Reason: PAIN - SEVERE Last Admin: 10/25/17 22:18 Dose: 2 mg Nicotine (Nicotine Inhaler*) 10 mg INH Q2H PRN PRN Reason: CRAVING Last Admin: 10/26/17 08:15 Dose: 10 mg Nicotine (Nicotine Patch 14 Mg/24 Hr*) 1 patch TRANSDERM DAILY [facility] Last Admin: 10/26/17 08:19 Dose: 1 patch Nicotine Polacrilex (Nicotine Gum*) 2 mg PO Q2H PRN PRN Reason: CRAVING Ondansetron HCl (Zofran Inj*) 4 mg IV Q6H PRN PRN Reason: NAUSEA Oxycodone/Acetaminophen (Percocet 5/325 Tab*) 1 tab PO Q4H PRN PRN Reason: PAIN Last Admin: 10/23/17 23:12 Dose: 1 tab Pharmacy Consult (Vancomycin Per Pharmacy*) 1 note FOLLOW UP . PRN PRN Reason: PER PROTOCOL Pharmacy Profile Note (Nicotine Patch Removal Note*) 1 note PATCH OFF 2100 [facility] Last Admin: 10/25/17 21:10 Dose: 1 note Tramadol HCl (Ultram*) 100 mg PO Q6H PRN PRN Reason: PAIN Last Admin: 10/26/17 08:20 Dose: 100 mg Vital Signs - 8 hr 10/26/17 10/26/17 10/26/17 03:44 07:20 08:13 Temperature 98.0 F 98.0 F Pulse Rate 72 70 Respiratory 16 18 16 Rate Blood Pressure 130/78 113/80 (mmHg) O2 Sat by Pulse 99 99 Oximetry 10/26/17 08:20 Temperature Pulse Rate Respiratory 16 Rate Blood Pressure (mmHg) O2 Sat by Pulse Oximetry Oxygen Devices in Use Now: None Result Diagrams: 10/22/17 11:00 10/23/17 06:35 Additional Lab and Data: Lab Results 10/20/17 10/20/17 10/20/17 Range/Units 09:11 09:11 09:11 WBC (3.5-10.8) 10^3/ul RBC (4.0-5.4) 10^6/ul Hgb (12.0-16.0) g/dl Hct (35-47) % MCV (80-97) fL MCH (27-31) pg MCHC (31-36) g/dl RDW (10.5-15) % Plt Count (150-450) 10^3/ul MPV (7.4-10.4) um3 Neut % (Auto) (38-83) % Lymph % (Auto) (25-47) % [place] % (Auto) (1-9) % Eos % (Auto) (0-6) % Baso % (Auto) (0-2) % Absolute Neuts (auto) (1.5-7.7) 10^3/ul Absolute Lymphs (auto) (1.0-4.8) 10^3/ul Absolute Monos (auto) (0-0.8) 10^3/ul Absolute Eos (auto) (0-0.6) 10^3/ul Absolute Basos (auto) (0-0.2) 10^3/ul Absolute Nucleated RBC 10^3/ul Nucleated RBC % INR (Anticoag Therapy) 1.11 H (0.77-1.02) APTT 28.8 (26.0-36.3) seconds Sodium 132 L (133-145) mmol/L Potassium 4.0 (3.5-5.0) mmol/L Chloride 103 (101-111) mmol/L Carbon Dioxide 21 L (22-32) mmol/L Anion Gap 8 (2-11) mmol/L BUN 6 (6-24) mg/dL Creatinine 0.67 (0.51-0.95) mg/dL Est GFR ( Amer) 135.8 (>60) Est GFR (Non-Af Amer) 105.6 (>60) BUN/Creatinine Ratio 9.0 (8-20) Glucose 93 (70-100) mg/dL Lactic Acid (0.5-2.0) mmol/L Calcium 9.1 (8.6-10.3) mg/dL Total Bilirubin 0.40 (0.2-1.0) mg/dL AST 14 (13-39) U/L ALT 12 (7-52) U/L Alkaline Phosphatase 115 H (34-104) U/L Total Creatine Kinase 74 (10-223) U/L CK-MB (CK-2) 5.2 (0.6-6.3) ng/mL Troponin I 0.06 H* (<0.04) ng/mL C-Reactive Protein 258.44 H (< 5.00) mg/L B-Natriuretic Peptide 122 H ( - 100) pg/mL Total Protein 7.2 (6.4-8.9) g/dL Albumin 3.9 (3.2-5.2) g/dL Globulin 3.3 (2-4) g/dL Albumin/Globulin Ratio 1.2 (1-3) Lipase 16 (11.0-82.0) U/L TSH 0.40 (0.34-5.60) mcIU/mL Beta HCG, Quant 1.66 mIU/mL Salicylates < 2.50 (<30) mg/dL Acetaminophen < 15 mcg/mL Serum Alcohol < 10 (<10) mg/dL 10/20/17 10/20/17 Range/Units 09:11 09:11 WBC 27.4 H (3.5-10.8) 10^3/ul RBC 4.76 (4.0-5.4) 10^6/ul Hgb 13.9 (12.0-16.0) g/dl Hct 42 (35-47) % MCV 88 (80-97) fL MCH 29 (27-31) pg MCHC 33 (31-36) g/dl RDW 13 (10.5-15) % Plt Count 435 (150-450) 10^3/ul MPV 7 L (7.4-10.4) um3 Neut % (Auto) 79.8 (38-83) % Lymph % (Auto) 14.2 L (25-47) % [place] % (Auto) 5.2 (1-9) % Eos % (Auto) 0.4 (0-6) % Baso % (Auto) 0.4 (0-2) % Absolute Neuts (auto) 21.9 H (1.5-7.7) 10^3/ul Absolute Lymphs (auto) 3.9 (1.0-4.8) 10^3/ul Absolute Monos (auto) 1.4 H (0-0.8) 10^3/ul Absolute Eos (auto) 0.1 (0-0.6) 10^3/ul Absolute Basos (auto) 0.1 (0-0.2) 10^3/ul Absolute Nucleated RBC 0 10^3/ul Nucleated RBC % 0 INR (Anticoag Therapy) (0.77-1.02) APTT (26.0-36.3) seconds Sodium (133-145) mmol/L Potassium (3.5-5.0) mmol/L Chloride (101-111) mmol/L Carbon Dioxide (22-32) mmol/L Anion Gap (2-11) mmol/L BUN (6-24) mg/dL Creatinine (0.51-0.95) mg/dL Est GFR ( Amer) (>60) Est GFR (Non-Af Amer) (>60) BUN/Creatinine Ratio (8-20) Glucose (70-100) mg/dL Lactic Acid 1.1 (0.5-2.0) mmol/L Calcium (8.6-10.3) mg/dL Total Bilirubin (0.2-1.0) mg/dL AST (13-39) U/L ALT (7-52) U/L Alkaline Phosphatase (34-104) U/L Total Creatine Kinase (10-223) U/L CK-MB (CK-2) (0.6-6.3) ng/mL Troponin I (<0.04) ng/mL C-Reactive Protein (< 5.00) mg/L B-Natriuretic Peptide ( - 100) pg/mL Total Protein (6.4-8.9) g/dL Albumin (3.2-5.2) g/dL Globulin (2-4) g/dL Albumin/Globulin Ratio (1-3) Lipase (11.0-82.0) U/L TSH (0.34-5.60) mcIU/mL Beta HCG, Quant mIU/mL Salicylates (<30) mg/dL Acetaminophen mcg/mL Serum Alcohol (<10) mg/dL Microbiology and Other Data: Microbiology Microbiology 10/20/17 09:11 Aerobic Blood Culture - Preliminary Blood Venous No Growth Day 4 Anaerobic Blood Culture - Preliminary No Growth Day 4 10/20/17 08:57 Aerobic Blood Culture - Preliminary Blood Venous No Growth Day 4 Anaerobic Blood Culture - Preliminary No Growth Day 4 10/22/17 11:45 Gram Stain - Final Wound - Wound Wound Culture - Preliminary No Growth Day 1 10/22/17 11:00 Aerobic Blood Culture - Preliminary Blood Venous No Growth Day 1 Anaerobic Blood Culture - Preliminary No Growth Day 1 10/22/17 11:00 Aerobic Blood Culture - Preliminary Blood Venous No Growth Day 1 Anaerobic Blood Culture - Preliminary No Growth Day 1 Diagnostic Imaging: REPEAT US LUE: Patient Name: ASHELY SO Medical Record#: [id number] Ordering Physician: Jostin Schmidt MD Acct.#: [id number] : 1990 Age: 27 Sex: F Location: [address] [place] [address] MEDICAL/TELEMETRY Exam Date: 10/22/17454 ADM Status: ADM IN Order Information: US SOFT TISSUE EXT RT COMP Accession Number: [id number] CPT: 93983 INDICATION: Right upper arm erythema and pain COMPARISON: None TECHNIQUE: Real time ultrasound images of the right upper arm were acquired with carey scale and Doppler color flow imaging. FINDINGS: Within the musculature of the right upper arm there is an avascular and heterogeneous collection with peripheral vascularity measuring 8.8 x 3.9 x 1.9 cm. IMPRESSION: Sonographic findings are consistent with either intramuscular perimuscular right upper arm abscess. <Electronically signed by Jacek Molina MD in OV> 10/22/17956 Dictated By: Jacek Molina MD Dictated Date/Time: 10/22/17956 Transcribed Date/Time: 10/22/17954 Copy to: CC:Kriss Gr DO; Justin Soria MD; Saul Darden MD; Jostin Schmidt MD ; Deonte Cheng MD Imaging - [facility] Imaging - [facility] [address] [place] [address] ph ([phone]) ph ([phone]) ph ([phone]) 1 of 1 1 of 1 Assess/Plan/Problems-Billing Assessment: This is a 27 year old female patient with hx of injection drug abuse that presents with cellulitis and abcess of RUE, with continuing clinical improvement. - Patient Problems (1) Cellulitis of right upper extremity Code(s): L03.113 - CELLULITIS OF RIGHT UPPER LIMB Comment: - Continue IV vanco and cefepime - Pending consult with ID - Loculated abcess drained by Dr. Zaidi 10/22 - Local wound care/dressing changes - Morphine and ativan PRN (2) Drug abuse and dependence Current Visit: Yes Status: Acute Code(s): F19.20 - OTHER PSYCHOACTIVE SUBSTANCE DEPENDENCE, UNCOMPLICATED SNOMED Code(s): 7546801 Comment: - Consulted SW, patient counseled extensively (3) Sepsis Current Visit: Yes Status: Acute Comment: - Afebrile, BP stable, s/p fluid resuscitation, resolved (4) DVT prophylaxis Comment: SCDs Status and Disposition: Remain inpatient, continue IV atbx. Appreciate further recs from ID.
[2017-10-26] MEDS ORDERED: Sulfamethox/Trimethoprim DS 800/160* TAB PO SCH (12:30)
--- NOTE | 2017-10-26 14:32 | PN ---
Progress Note - Progress Note Date of Service: 10/26/17 SOAP: Subjective: Patient seen and examined at bedside. Reports doing well, ready to go home. Denies any arm pain, bleeding or discharge. Objective: Awake and alert, sitting on her bed, appears comfortable. VSS, afebrile Right upper arm with a clean linear incision, approx. 1.5-2 cm, packing removed , no bleeding or discharge noted. No surrounding erythema or induration. Assessment: A 27 y/o female, s/p I&D of right arm abscess, stable Plan: At this point, you may only cover wound with clean gauze and Kerlex wrap. No need for more packing F/U with surgical associates on Tuesday, or early next week.
[2017-10-26 14:57] VITALS: BP 130/81
--- NOTE | 2017-10-27 03:11 | DS ---
CC: Dr. Cheng * DISCHARGE SUMMARY: DATE OF ADMISSION: 10/20/17 DATE OF DISCHARGE: 10/26/17 PRIMARY CARE PROVIDER: Dr. Cheng. PROVIDER: Gi Smart NP ATTENDING PHYSICIAN: Dr. Deana Lomeli * (as dictated by Gi Smart NP). CONSULTING PHYSICIANS: 1. Dr. Justin Soria, Infectious Disease. 2. Dr. Lev Zaidi, Surgery. PRIMARY DISCHARGE DIAGNOSES: 1. Right arm abscess, status post incision and drainage. 2. Right upper extremity cellulitis. 3. History of drug use. 4. Sepsis. SECONDARY DISCHARGE DIAGNOSIS: History of IV drug use. MEDICATIONS AT DISCHARGE: 1. Acetaminophen 650 mg q.6 hours p.r.n. 2. Tramadol 100 mg q.6 hours p.r.n. The patient was given a 5-day supply. I did check her on I-STOP and found no record of previously prescribed controlled substances. 3. Bactrim DS 1 tab b.i.d. x7 more days. Please note that patient also has gabapentin 100 mg t.i.d. 4. Citalopram 20 mg daily. 5. Tegretol 100 mg b.i.d. 6. Hydroxyzine 25 mg q.6 hours and 50 at bedtime noted on her med rec, but these have been unconfirmed. HOSPITAL COURSE OF STAY: For full details, please refer to the H and P provided by Magalie Kelley NP, on admission. In summary, this is a 27-year-old female with a history of IV drug use, who presented to the hospital with concern for right upper extremity redness and swelling. The patient reportedly injected methamphetamines into her right upper extremity and apparently there was a mistake made when she intended to mix this with water and instead utilized computer training specialist fluid. She was admitted with concern for abscess and cellulitis. She was seen in consult by Surgery and status post incision and drainage. She was also seen in consult by Infectious Disease. While she was here, she was receiving IV vancomycin. She has since been switched to p.o. Bactrim which she is going to take for additional week. She has had packing to the incision and is healing appropriately. Packing is no longer necessary per the surgical team. Surgery did see her just prior to discharge and recommended that she continue with clean gauze and Kerlix wrap. She is to follow up with Surgery on 10/26/17, and she has an appointment time scheduled. She should continue again with her antibiotics for one additional week and follow up appropriately with her PCP and with Surgery. The patient is to have lifetime senior care health assistance as well. PHYSICAL EXAMINATION: This is a young female, who is ambulating in room, in no acute distress. HEENT: Oral mucosa is moist. Pupils are equal, round, and reactive to light. Cardiac: Regular rate and rhythm. No murmurs noted. Lungs are clear to auscultation. Abdomen is soft, nontender, nondistended. Extremities: No lower extremity peripheral edema. The patient does have mild edema and erythema of the right upper extremity that is improved. Neuro: She is awake. She is alert and oriented. No focal deficits noted. Vital Signs: Temperature 98.1, pulse rate 95, respiratory rate 130/81, O2 saturation 97% on room air. FOLLOWUP NEEDS: The patient again is to follow up with Surgery. She will follow up with her PCP. She has been advised to stop smoking for wound healing purposes. She has been counseled and has received a Social Work consult for her history of IV drug use. DIET: Regular diet. ACTIVITY: As tolerated. CONDITION: Improved, stable. DISPOSITION: To home. TIME SPENT: Time spent on this discharge is approximately 45 minutes. Again, this is only a brief summary of the patient's hospital course of stay. For full details, please refer to the full medical records. If you have any further questions or need further assistance, please feel free to contact me at . GI SMART, ELLI [id number]/CPS #: [id number] RADHA
== END 2017-10-26 16:35 | disposition home or self-care (01) | DRG 710 ==
LOC: ED 07:53 → MEDTELE 13:07
PROVIDERS: ADMIT Hospitalist; ATTEND Internal Medicine
PROC: 0J9D0ZZ Drainage of Right Upper Arm Subcutaneous Tissue and Fascia, Open Approach (ICD-10-PCS; principal; 2017-10-22)
PROC: 05H633Z Insertion of Infusion Device into Left Subclavian Vein, Percutaneous Approach (ICD-10-PCS; 2017-10-23)
DX: A41.9 Sepsis, unspecified organism (principal); L02.413 Cutaneous abscess of right upper limb; F15.10 Other stimulant abuse, uncomplicated; L03.113 Cellulitis of right upper limb; F17.210 Nicotine dependence, cigarettes, uncomplicated
CPT/HCPCS: 36415; 71275; 80048; 80053; 80074; 80202; 80307; 80320; 80329; 81003; 82550; 82553; 82565; 83605; 83690; 83880; 84443; 84484; 84520; 84702; 85025; 85610; 85730; 86140; 86703; 87040; 87070; 87205; 93005; A9270-GY; G0480; J0692; J0696; J1170; J2060; J2270; J2405; J3370; Q9967

== ENCOUNTER 2018-05-17 04:29 | Emergency (ER) | payer OTHER ==
--- NOTE | 2018-05-17 04:46 | ED ---
Substance Abuse/Use - HPI Summary HPI Summary: This is rubio Yeager documenting for attending Vineet Ye MD. Pt is a 27 y/o F presents to ED s/p possible overdose. Assoc. Sx: SOLORZANO. Denies: Vomiting. Pt states that she took unknown amount of tylenol between ~2000 and 2400. She states she "took whatever was in the bottle". Ptr notes she is still in pain. Her friend took her to [facility] s/p consumption of meds and was transferred. PMHx: chronic R TMJ, anxiety. - History Of Current Complaint Stated Complaint: POSSIBLE OVERDOSE Time Seen by Provider: 05/17/18 04:42 Hx Obtained From: EMS, Medical Records Onset/Duration of Drug/ETOH Abuse: Hours - ~2000 Ingestion History: Type/Name Of Drug - Tylenol Overdose Characteristics: Oral Timing Of Abuse: Binge Use Severity Currently: Severe Character: Lethargic Associated Signs And Symptoms: Other: - SOLORZANO - Allergies/Home Medications Allergies/Adverse Reactions: Allergies Allergy/AdvReac Type Severity Reaction Status Date / Time No Known Allergies Allergy Verified 06/10/14 15:46 PMH/Surg Hx/FS Hx/Imm Hx Cardiovascular History: Denies: Hx Coronary Artery Disease Sensory History: Reports: Hx Contacts or Glasses Denies: Hx Hearing Aid Opthamlomology History: Reports: Hx Contacts or Glasses Neurological History: Reports: Hx Seizures, Other Neuro Impairments/Disorders - Cerebral palsy (mild) Psychiatric History: Reports: Hx Anxiety, Hx Suicide Attempt, Other Psychiatric Issues/Disorders - SI Denies: Hx Eating Disorder, Hx of Violent Episodes Against Others - Immunization History Date of Tetanus Vaccine: PT STATES UNSURE Date of Influenza Vaccine: NONE - Family History Known Family History: Positive: Other - Psychiatric illness; Other FHx reviewed and noncontributory Negative: Cardiac Disease, Hypertension, Diabetes - Social History Occupation: Employed Full-time Lives: With Family Alcohol Use: None 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) Substance Use Type: Reports: Marijuana, Synthetic Drugs Substance Use Comment - Amount & Last Used: reported meth use Smoking Status (MU): Light Every Day Tobacco Smoker Type: Cigarettes Review of Systems Negative: Fever Negative: Vomiting Positive: Headache All Other Systems Reviewed And Are Negative: Yes Physical Exam - Summary Physical Exam Summary: VITAL SIGNS: Reviewed. GENERAL: Patient is a well-developed and nourished (MALE OR FEMALE) who is lying comfortable in the stretcher. Patient is not in any acute respiratory distress. HEAD AND FACE: No signs of trauma. No ecchymosis, hematomas or skull depressions. No sinus tenderness. EYES: PERRLA, EOMI x 2, No injected conjunctiva, no nystagmus. EARS: Hearing grossly intact. Ear canals and tympanic membranes are within normal limits. No tinnitus. MOUTH: Oropharynx within normal limits. NECK: Supple, trachea is midline, no adenopathy, no JVD, no carotid bruit, no c- spine tenderness, neck with full ROM. CHEST: Symmetric, no tenderness at palpation LUNGS: Clear to auscultation bilaterally. No wheezing or crackles. CVS: Regular rate and rhythm, S1 and S2 present, no murmurs or gallops appreciated. ABDOMEN: Soft, non-tender. No signs of distention. No rebound no guarding, and no masses palpated. Bowel sounds are normal. EXTREMITIES: FROM in all major joints, no edema, no cyanosis or clubbing. NEURO: Alert and oriented x 3. No acute neurological deficits. Speech is normal and follows commands. SKIN: Dry and warm Triage Information Reviewed: Yes Vital Signs Reviewed: Yes Diagnostics - Laboratory Result Diagrams: 05/17/18 04:45 05/17/18 04:45 Lab Statement: Any lab studies that have been ordered have been reviewed, and results considered in the medical decision making process. - EKG 0455 Cardiac Rate: NL EKG Rhythm: Sinus Rhythm ST Segment: Normal EKG Interpretation: Normal axis. Normal interval. No ischemic changes Course/Dx - Course Course Of Treatment: Provider reviewed pts labs: nml salicyclate. nml labs. Pt will be D/C home - Diagnoses Provider Diagnoses: Mandible pain Discharge - Sign-Out/Discharge Documenting (check all that apply): Patient Departure - Discharge Plan Condition: Stable Disposition: HOME Referrals: Prosper RICO,Deonte Lyn [Primary Care Provider] - 2 Days Additional Instructions: Follow up with PCP within the next 2 days. RETURN TO THE EMERGENCY DEPARTMENT FOR CHANGING OR WORSENING SYMPTOMS.
[2018-05-17] MEDS ORDERED: Ketorolac INJ* 30 MG/ML 1 ML VIAL IV PUSH ONE (04:53)
[2018-05-17] MEDS ORDERED: NS 0.9% 1000 ML* 1,000 ML IV ONE (04:53)
[2018-05-17 05:19] LABS: Hematocrit 36 % (35-47); Hemoglobin 12.1 g/dl (12.0-16.0); Mean Corpuscular HGB Conc 34 g/dl (31-36); Mean Corpuscular Hemoglobin 30 pg (27-31); Mean Corpuscular Volume 88 fL (80-97); Mean Platelet Volume 6.8 um3 (7.4-10.4); Platelet Count 419 10^3/ul (150-450); Red Blood Count 4.09 10^6/ul (4.00-5.40); Red Cell Distribution Width 14 % (10.5-15); White Blood Count 12.2 10^3/ul (3.5-10.8)
[2018-05-17 05:35] LABS: EGFR Non-African American 111.3 (>60)
[2018-05-17 06:14] LABS: ABS Basophils 0 10^3/ul (0-0.2); ABS Eosinophils 0.3 10^3/ul (0-0.6); ABS Lymphocytes 5.1 10^3/ul (1.0-4.8); ABS Monocytes 0.5 10^3/ul (0-0.8); ABS Neutrophils 6.2 10^3/ul (1.5-7.7); ABS Nucleated RBC 0 10^3/ul; Eosinophil % 2.5 % (0-6); Nucleated Red Blood Cells % 0.1
[2018-05-17 06:17] VITALS: BP 126/81
== END 2018-05-17 06:15 | disposition home or self-care (01) ==
LOC: ED 04:29
DX: R68.84 Jaw pain (principal); F17.210 Nicotine dependence, cigarettes, uncomplicated; M26.601 Right temporomandibular joint disorder, unspecified; F41.9 Anxiety disorder, unspecified
CPT/HCPCS: 36415; 80053; 80320; 80329; 83605; 85025; 85060; 93005; 96361; 96374; 99282; G0480; J1885